=== PATIENT | male | born 1945 | race Caucasian/White ===

== ENCOUNTER 2021-09-15 14:10 | Inpatient (IN) ==
[2021-09-15] MEDS ORDERED: 0.9 % SODIUM CHLORIDE 1,000 ML IV ONE ×2 (14:18→15:56)
--- NOTE | 2021-09-15 14:37 | Emergency Department Note ---
HPI General Chief complaint: Blood Sugar Problem Stated complaint: hypotension, pale, high BS Time Seen by Provider: 09/15/21 14:23 Source: EMS Mode of arrival: EMS Limitations: no limitations History of Present Illness HPI Narrative: Narrative: 75 yo M w/ h/o HTN, HLD, DM2, p/w generalized weakness, dark stools, N/V/D and elevated blood sugar. He reports that for the past three days he has had an "upset stomach" progressing to N/V w/ undigested liquid present, and diarrhea. He reports that he has been taking pepto-bismol for his diarrhea and thus his stool has been black. He has had a colonoscopy about 9 years ago and this was unremarkable. He notes that he has become significantly weak over the past few days to the point that now standing up is causing him fatigue. He denies any F/C, CP/SOB, abdominal pain, or other Sx. Related Data Home Medications Medication Instructions Recorded Confirmed atorvastatin 40 mg tablet 40 mg PO QDAY 04/16/21 08/05/21 diazepam 5 mg tablet 5 mg PO QDAY PRN tab 04/16/21 08/05/21 ezetimibe 10 mg tablet 10 mg PO QDAY 04/16/21 08/05/21 lisinopril 20 mg tablet 20 mg PO QDAY 04/16/21 08/05/21 metformin 500 mg tablet 1,000 mg PO BID tab 04/16/21 08/05/21 metoprolol succinate 100 mg 100 mg PO QDAY 04/16/21 08/05/21 tablet,extended release 24 hr zolpidem 10 mg tablet 10 mg PO PRN tab 04/16/21 08/05/21 amlodipine 5 mg tablet 5 mg PO QDAY 04/30/21 08/05/21 buspirone 15 mg tablet 15 mg PO QDAY tab 04/30/21 08/05/21 nateglinide 60 mg tablet 60 mg PO BID tab 04/30/21 08/05/21 Allergies Allergy/AdvReac Type Severity Reaction Status Date / Time No Known Drug Allergies Allergy Verified 09/15/21 14:17 Review of Systems ROS ROS Narrative: Narrative: All systems ED: reviewed and negative except as stated. [facility] Narrative Patient History Narrative: Narrative: Medical/Surgical/Family History All Active Problems (Updated 09/15/21 @ 18:20 by Terence Reagan MD) Prolinuria (Chronic) DM (diabetes mellitus) (Chronic) HTN (hypertension) (Chronic) Hyperlipemia (Chronic) Insomnia (Chronic) Anxiety (Chronic) Overweight (Chronic) Proteinuria (Acute) Acute GI bleeding (Acute) DKA (diabetic ketoacidosis) (Acute) Medical History Anxiety DM (diabetes mellitus) Type 2 on oral rx HTN (hypertension) Hyperlipemia Insomnia Overweight Surgical History No pertinent past surgical history Family History Father No problems noted. Mother No problems noted. Social History Smoking Status: Former smoker Alcohol Intake Frequency: a few times a month Exam Narrative Narrative: Narrative: General Limitations: no limitations General appearance: Present alert and in no apparent distress Head Head: Present atraumatic and normocephalic ENT ENT: Present normal oropharynx and mucous membranes moist Chest Chest: Present normal inspection and symmetric chest wall rise Respiratory Respiratory: Present normal lung sounds bilaterally; Absent respiratory distress, accessory muscle use or decreased breath sounds Cardiovascular Cardiovascular: Present regular rate, normal rhythm, +S1, +S2 and other (2+ B/L radial pulses); Absent systolic murmur or diastolic murmur Adbominal Abdominal: Present soft and normal bowel sounds; Absent distention or tenderness Rectal Rectal: Present black stool (hemoccult positive but on pepto bismol) Extremities Extremities: Absent pedal edema Neurological Neurological: Present alert and oriented X3 Psychiatric Psychiatric: Present normal affect Skin Skin: Present warm (WNL) and dry Course Vital Signs Vital signs: Vital Signs Temperature 97.3 F 09/15/21 14:12 Pulse Rate 117 H 09/15/21 14:12 Respiratory Rate 18 09/15/21 14:12 Blood Pressure 91/41 09/15/21 14:12 Pulse Oximetry (%) 99 09/15/21 14:12 Temperature 97.3 F 09/15/21 14:12 Pulse Rate 121 H 09/15/21 17:34 Respiratory Rate 25 H 09/15/21 17:34 Blood Pressure 110/51 09/15/21 17:31 Pulse Oximetry (%) 92 04/25/22 17:34 MDM MDM Narrative Medical decision making narrative: Narrative: 75 yo M w/ h/o HTN, HLD, DM2, p/w generalized weakness, dark stools, N/V/D and elevated blood sugar. DDx- hemorrhagic shock, GI bleed, dehydration, metabolic/electrolyte d/o, endocrine d/o, ACS Pt presented w/ HR 120, SBP 100, pale, but mentating clearly, in NAD. He was i mmediately started on IVF. His rectal exam was notable for dark stool but the Dx was made somewhat unclear by his peptobismol use. Additionally, FS was around 450. I began a W/U for GI bleeding and DKA. His CBC showed a Hgb of 5.2. He was agreeable to transfusion and we started him on 2U PRBC and protonix after explaining R/B/A. CMP was notable for blood sugar of 587, K 6.1, anion gap 20, and ketones were positive. Lactate was 6.9. Given his positive shock index, elevated lactate there was clearly evidence of shock but he was compensating well w/ NAD, normal mentation. Concomitantly he had evidence of DKA, and I started him on standard DKA protocol. Given the tachycardia I did check an EKG w hich showed no ischemia. I consulted w/ BARNEY Richmond working w/ Dr Elliott w/ GI, and she stated that they would arrange for endoscopy in the AM. Dr Martins accepted pt for admission. Lab Data Lab results reviewed: Yes I reviewed the patient's lab results. Result diagrams: 09/15/21 14:40 09/15/21 15:35 Labs: Lab Results 09/15/21 09/15/21 09/15/21 Range/Units 14:33 14:40 15:35 WBC 12.7 H (4.5-11.0) K/mcL RBC 1.62 L (4.63-6.08) M/mcL Hgb 5.2 L* (13.7-17.5) g/dL Hct 16.5 L* (40.1-51.0) % MCV 101.9 H (80.0-100.0) fL MCH 32.1 (26.0-34.0) pg MCHC 31.5 (31.0-36.0) g/dL RDW 13.5 (11.5-14.5) % Plt Count 251 (140-440) K/mcL MPV 13.5 H (7.4-10.4) fL Neut % (Auto) 86.9 H (38.0-78.0) % Lymph % (Auto) 9.6 L (15.5-49.0) % [place] % (Auto) 3.2 (1.0-12.0) % Eos % (Auto) 0.1 (0.0-7.0) % Baso % (Auto) 0.2 (0.0-2.0) % Lymph # (Auto) 1.22 L (1.50-4.80) K/mcL [place] # (Auto) 0.40 (0.10-0.90) K/mcL Eos # (Auto) 0.01 (0.00-0.70) K/mcL Baso # (Auto) 0.02 (0.00-0.30) K/mcL Absolute Neutrophils 11.02 H (1.80-8.00) K/mcL POC VBG pH 7.33 (7.32-7.42) POC VBG pCO2 at Temp 28.9 L (41-51) POC VBG pO2 51 H (25-40) POC VBG HCO3 15.2 L (24-28) POC VBG Total CO2 16.0 L (25-29) POC Venous O2 Sat 84.0 H (40-70) POC VBG Base Excess -11.0 L (-2-2) VBG Lactic Acid 6.9 H* (0.5-2.0) mmol/L Sodium 137 (133-145) mmol/L Potassium 6.1 H* (3.3-5.1) mmol/L Chloride 102 (96-108) mmol/L Carbon Dioxide 15 L (22-30) mmol/L Anion Gap 20.0 H (8.0-16.0) BUN 55 H (8-23) mg/dL Creatinine 1.1 (0.7-1.2) mg/dL GFR Calculation 65 Glucose 587 H* (70-105) mg/dL POC Venous Lactate 9.6 H* (0.5-2) Calcium 9.8 (8.6-10.4) mg/dL Total Bilirubin 0.2 (0.1-1.0) mg/dL AST 9 (<40) U/L ALT 11 (<40) U/L Alkaline Phosphatase 52 (39-117) U/L Total Protein 5.1 L (5.9-8.4) gm/dL Albumin 3.2 (3.2-5.2) gm/dL Globulin 1.9 L (2.2-3.7) gm/dL Albumin/Globulin Ratio 1.7 (1.0-2.3) Beta-Hydroxybutyrate 0.82 H (<0.27) mmol/L CC TIME Critical Care Time Attestation: Approximately 35 minutes of critical care time was used in order to assess and manage the high probability of imminent or life threatening deterioration to the cardiovascular, GI and endocrine systems which required my highest level of preparedness and interventions with frequent patient assessments. This time is excluding time spent on separately billable procedures. Discharge Plan Patient/Caregiver Discharge Instructions Pt seen by MANUFACTURING PROJECT MANAGER/PA only: No Clinical Impression: Acute GI bleeding, DKA (diabetic ketoacidosis) Patient Disposition: Xfer As Inpt ([facility]) Condition: Critical Follow up with: Riri Edwards MD [Primary Care Provider] - Prescriptions: No Action ezetimibe 10 mg tablet 10 mg PO QDAY 0RF diazepam 5 mg tablet 5 mg PO QDAY PRN0RF zolpidem 10 mg tablet 10 mg PO PRN0RF metoprolol succinate 100 mg tablet extended release 24 hr 100 mg PO QDAY 0RF metformin 500 mg tablet 1,000 mg PO BID 0RF lisinopril 20 mg tablet 20 mg PO QDAY 0RF atorvastatin 40 mg tablet 40 mg PO QDAY 0RF buspirone 15 mg tablet 15 mg PO QDAY 0RF Label Comments: Dr Edwards manages amlodipine 5 mg tablet 5 mg PO QDAY 0RF nateglinide 60 mg tablet 60 mg PO BID 0RF Rx Instructions: give before meal(s)
[2021-09-15 16:25] LABS: Basophils # (Auto) 0.02 K/mcL (0.00-0.30); Basophils % (Auto) 0.2 % (0.0-2.0); Eosinophils # (Auto) 0.01 K/mcL (0.00-0.70); Eosinophils % (Auto) 0.1 % (0.0-7.0); Hematocrit 16.5 % (40.1-51.0); Hemoglobin 5.2 g/dL (13.7-17.5); Lymphocytes # (Auto) 1.22 K/mcL (1.50-4.80); Lymphocytes % (Auto) 9.6 % (15.5-49.0); Mean Cell Volume 101.9 fL (80.0-100.0); Mean Corpuscular HGB Conc 31.5 g/dL (31.0-36.0); Mean Platelet Volume 13.5 fL (7.4-10.4); Monocytes % (Auto) 3.2 % (1.0-12.0); Neutrophils % (Auto) 86.9 % (38.0-78.0); Platelet Count 251 K/mcL (140-440); RBC 1.62 M/mcL (4.63-6.08); Red Cell Distribution Width 13.5 % (11.5-14.5); WBC 12.7 K/mcL (4.5-11.0)
[2021-09-15] MEDS ORDERED: PANTOPRAZOLE 40 MG VIAL IV ONE (16:41)
[2021-09-15] MEDS ORDERED: 0.9 % SODIUM CHLORIDE 250 ML IV SCH ×2 (16:45→20:55)
[2021-09-15 17:03] LABS: Beta Hydroxybutyrate 0.82 mmol/L (<0.27)
[2021-09-15 17:09] LABS: ALT/SGPT 11 U/L (<40); AST/SGOT 9 U/L (<40); Albumin 3.2 gm/dL (3.2-5.2); Albumin/Globulin Ratio 1.7 (1.0-2.3); Alkaline Phosphatase 52 U/L (39-117); Bilirubin,Total 0.2 mg/dL (0.1-1.0); Blood Urea Nitrogen 55 mg/dL (8-23); Calcium 9.8 mg/dL (8.6-10.4); Carbon Dioxide 15 mmol/L (22-30); Chloride 102 mmol/L (96-108); Globulin 1.9 gm/dL (2.2-3.7); Glomerular Filtration Rate 65; Glucose 587 mg/dL (70-105)
[2021-09-15] MEDS ORDERED: INSULIN REGULAR, HUMAN 50 UNIT in 0.9 % SODIUM CHLORIDE 99.5 ML IV SCH ×2 (17:45→20:55)
[2021-09-15] MEDS ORDERED: KETAMINE 50 MG/ML ML IV PRN (18:16)
[2021-09-15 18:23] LABS: ABG Methemoglobin 0.3 % (0.4-1.5); Total Hemoglobin 5.8 gm/Dl (13.5-16.5); VBG Base Excess -5 (-2-3); VBG HCO3 19.4 mmol/L (24.0-28.0); VBG Oxygen Saturation 86.2 % (40.0-70.0); VBG PCO2 33.7 mmHg (41.0-51.0); VBG PH 7.38 U (7.32-7.42); VBG PO2 128.1 mmHg (25.0-40.0); VBG Total CO2 20.5 mmol/L (25.0-29.0)
[2021-09-15] MEDS ORDERED: MIDAZOLAM 2 MG/2 ML VIAL IV SCH (18:30)
[2021-09-15] MEDS ORDERED: PROPOFOL 200 MG/20 ML VIAL IV SCH (18:30)
--- NOTE | 2021-09-15 18:35 | Internal Medicine Consult Note ---
HPI Data of Consult Patient: new to practice Consult date: 09/15/21 Requesting physician: Terence Reagan Primary Care Provider: Riri Edwards Consult Narrative Patient Information: Note initiated : 09/15/21 at 6:25 pm Service Date, if different from initiated Date: [] Patient: Christian Botello 75 y/o M admitted on for hypotension, pale, high BS. Chief Complaint: [melena, anemia] Mr Botello is a 75 year old white diabetic w/ HTN and hyperlipidemia who was brought to the ED by his daughter (present during interview) for c/o of weakness, chest pain, melena and a hgb 5. A week ago, he developed acute onset vomiting and diarrhea with crampy generalized abdominal pain. He began to take Aleve and peptobismol for his complaints and noticed melena the morning of 09/13. He also takes a cardioprophylactic 81mg ASA. He has had at least 2 black BMs daily for the last 3 days. His daughter became concerned when he couldn't stand up without becoming lightheaded and began to complain of dyspnea and chest pain on exertion. He denies any heartburn, dyspepsia, dysphagia or hematemesis. Last colonoscopy approximately [address] Hussein. There is no previous EGD. Chief complaint: GI bleed Reason for consult: GI bleed cc:: CC: Review of Systems All systems: reviewed and no additional remarkable complaints except as stated PFSH PFSH All Active Problems (Updated 09/15/21 @ 18:20 by Terence Reagan MD) Prolinuria (Chronic) DM (diabetes mellitus) (Chronic) HTN (hypertension) (Chronic) Hyperlipemia (Chronic) Insomnia (Chronic) Anxiety (Chronic) Overweight (Chronic) Proteinuria (Acute) Acute GI bleeding (Acute) DKA (diabetic ketoacidosis) (Acute) Medical History Anxiety DM (diabetes mellitus) Type 2 on oral rx HTN (hypertension) Hyperlipemia Insomnia Overweight Surgical History No pertinent past surgical history Family History Father No problems noted. Mother No problems noted. Social History (Updated 04/16/21 @ 14:21 by Randa Galvez) smoking status: Never smoker alcohol intake frequency: a few times a month MEDS/ALLERGIES Home Medications and Allergies Home Medications Medication Instructions Recorded Confirmed Type atorvastatin 40 mg tablet 40 mg PO QDAY 04/16/21 08/05/21 History diazepam 5 mg tablet 5 mg PO QDAY PRN tab 04/16/21 08/05/21 History ezetimibe 10 mg tablet 10 mg PO QDAY 04/16/21 08/05/21 History lisinopril 20 mg tablet 20 mg PO QDAY 04/16/21 08/05/21 History metformin 500 mg tablet 1,000 mg PO BID tab 04/16/21 08/05/21 History metoprolol succinate 100 mg 100 mg PO QDAY 04/16/21 08/05/21 History tablet,extended release 24 hr zolpidem 10 mg tablet 10 mg PO PRN tab 04/16/21 08/05/21 History amlodipine 5 mg tablet 5 mg PO QDAY 04/30/21 08/05/21 History buspirone 15 mg tablet 15 mg PO QDAY tab 04/30/21 08/05/21 History nateglinide 60 mg tablet 60 mg PO BID tab 04/30/21 08/05/21 History Allergies Allergy/AdvReac Type Severity Reaction Status Date / Time No Known Drug Allergies Allergy Verified 09/15/21 14:17 EXAM Constitutional Vitals: Temp Pulse Resp BP Pulse Ox 97.3 F 125 H 28 H 111/55 100 09/15/21 14:12 09/15/21 18:10 09/15/21 18:10 09/15/21 18:02 09/15/21 18:10 General appearance: average body habitus, cooperative and no acute distress Head Head exam: Present atraumatic, normal inspection and normocephalic ENT ENT exam: Present mucous membranes dry Neck Neck exam: Present normal inspection Cardiovascular Cardiovascular exam: Present tachycardia Rectal Rectal exam: Present deferred Expanded Lower Extremity Exam Gait: Present not tested/not observed Psychiatric Psychiatric exam: Present normal affect and normal mood Skin Skin exam: Present dry and pallor DATA Data Completed and Pending Labs: Labs from last 24 hours 09/15/21 09/15/21 09/15/21 18:02 18:01 17:45 WBC RBC Hgb Hct MCV MCH MCHC RDW Plt Count MPV Neut % (Auto) Lymph % (Auto) [place] % (Auto) Eos % (Auto) Baso % (Auto) Lymph # (Auto) [place] # (Auto) Eos # (Auto) Baso # (Auto) Absolute Neutrophils ABG Methemoglobin 0.3 L VBG pH 7.38 POC VBG pH VBG pCO2 33.7 L POC VBG pCO2 at Temp VBG pO2 128.1 H POC VBG pO2 VBG HCO3 19.4 L POC VBG HCO3 VBG Total CO2 20.5 L POC VBG Total CO2 VBG O2 Saturation 86.2 H POC Venous O2 Sat VBG Base Excess -5 L POC VBG Base Excess VBG Lactic Acid Carboxyhemoglobin 11.2 H Total Hemoglobin 5.8 L* Sodium Pending Potassium Pending Chloride Pending Carbon Dioxide Pending Anion Gap Pending BUN Pending Creatinine Pending GFR Calculation Pending Glucose Pending POC Venous Lactate Uric Acid Pending Calcium Pending Phosphorus Pending Magnesium Pending Pending Total Bilirubin Pending Direct Bilirubin Pending GGT Pending AST Pending ALT Pending Alkaline Phosphatase Pending Lactate Dehydrogenase Pending Total Protein Pending Albumin Pending Globulin Pending Albumin/Globulin Ratio Pending Triglycerides Pending Beta-Hydroxybutyrate 09/15/21 09/15/21 09/15/21 15:35 14:40 14:33 WBC 12.7 H RBC 1.62 L Hgb 5.2 L* Hct 16.5 L* MCV 101.9 H MCH 32.1 MCHC 31.5 RDW 13.5 Plt Count 251 MPV 13.5 H Neut % (Auto) 86.9 H Lymph % (Auto) 9.6 L [place] % (Auto) 3.2 Eos % (Auto) 0.1 Baso % (Auto) 0.2 Lymph # (Auto) 1.22 L [place] # (Auto) 0.40 Eos # (Auto) 0.01 Baso # (Auto) 0.02 Absolute Neutrophils 11.02 H ABG Methemoglobin VBG pH POC VBG pH 7.33 VBG pCO2 POC VBG pCO2 at Temp 28.9 L VBG pO2 POC VBG pO2 51 H VBG HCO3 POC VBG HCO3 15.2 L VBG Total CO2 POC VBG Total CO2 16.0 L VBG O2 Saturation POC Venous O2 Sat 84.0 H VBG Base Excess POC VBG Base Excess -11.0 L VBG Lactic Acid 6.9 H* Carboxyhemoglobin Total Hemoglobin Sodium 137 Potassium 6.1 H* Chloride 102 Carbon Dioxide 15 L Anion Gap 20.0 H BUN 55 H Creatinine 1.1 GFR Calculation 65 Glucose 587 H* POC Venous Lactate 9.6 H* Uric Acid Calcium 9.8 Phosphorus Magnesium Total Bilirubin 0.2 Direct Bilirubin GGT AST 9 ALT 11 Alkaline Phosphatase 52 Lactate Dehydrogenase Total Protein 5.1 L Albumin 3.2 Globulin 1.9 L Albumin/Globulin Ratio 1.7 Triglycerides Beta-Hydroxybutyrate 0.82 H A/P Assessment and plan (1) Acute GI bleeding: Assessment and plan: Melena, anemia and elevated BUN strongly suggest an UGI bleed, likely related to aspirin and NSAID use. I reviewed his case with Dr. Guan. We will arrange for EGD in the morning and start pantoprazole IV drip tonight. He is receiving a blood transfusion at the moment. Will allow patient to have ice chips until 2 hours prior to EGD. If no cause of bleeding identified, will consider colonoscopy and wireless capsule enteroscopy. Status: Acute Time Spent With Patient Time: Total time spent is greater than 50% in coordination of care (as documented) at patient's floor/unit and/or counseling patient: Total time spent with greater than 50% in coordination of care (as documented) at patient's floor/unit and/or counseling patient:: 25 - 35 minutes
[2021-09-15 19:16] LABS: Partial Thromboplastin Time 21.9 sec (20.0-37.0)
[2021-09-15 19:17] LABS: INR 1.2 (0.9-1.1); Prothrombin Time 15.5 sec (11.9-14.5)
--- NOTE | 2021-09-15 19:26 | Internal Med History&Physical ---
HPI History of Present Illness Patient information: Note initiated : 09/15/21 at 7:20 pm Service Date, if different from initiated Date: [] Patient: Christian Botello 75 y/o M admitted on for hypotension, pale, high BS. Chief Complaint: [] History of present illness: Mr. Botello is a 75 year old male with a history of hypertension, hyperlipidemia, type 2 diabetes mellitus, anxiety, obesity who presents to the emergency department for generalized weakness and shortness of breath. The patient says he is also been experiencing epigastric pain for about 5 days. In the ED, the patient was found to have severe anemia and guaiac positive melanotic stool. Additionally, lactic acid was elevated and blood pressures were low on presentation. The patient was given IV fluids, blood transfusions, Protonix IV. Patient was also hyperglycemic in the emergency department, started on a insulin infusion. Patient does have an anion gap metabolic acidosis likely secondary to lactic acidosis. Venous pH was normal at 7.38. Hospital medicine was consulted for admission. We discussed the plan of care in detail as well as the goals of care and CODE STATUS. All questions answered to the best of my ability. The patient stated that he wishes to be DNR/DNI. Review of systems Constitutional: Positive for generalized weakness, no fever or chills Eyes: no vision changes or pain Cardiovascular: no chest pain, no palpitations Respiratory: Positive for dyspnea, no cough Gastrointestinal: Positive for epigastric abdominal pain and dark stools, no nausea, vomiting, or diarrhea Genitourinary: no dysuria or difficulty voiding Musculoskeletal: no arthralgia or myalgia Integumentary: no skin lesion or wound Neurological: no focal weakness or numbness Psychiatric: no anxiety or depression Physical exam Head: Atraumatic, normal inspection. Eyes: normal appearance, no scleral icterus. Neck: full ROM Respiratory: no respiratory distress. Cardiovascular: Regular tachycardia, S1, S2. GI/Abdominal: soft, nontender, no guarding. Extremities: full range of motion, nontender. Neurological: CN II-XII intact, intact motor, intact sensation. Psychiatric: normal mood. Skin: warm, normal color PFSH PFSH All Active Problems (Updated 09/15/21 @ 18:20 by Terence Reagan MD) Prolinuria (Chronic) DM (diabetes mellitus) (Chronic) HTN (hypertension) (Chronic) Hyperlipemia (Chronic) Insomnia (Chronic) Anxiety (Chronic) Overweight (Chronic) Proteinuria (Acute) Acute GI bleeding (Acute) DKA (diabetic ketoacidosis) (Acute) Medical History Anxiety DM (diabetes mellitus) Type 2 on oral rx HTN (hypertension) Hyperlipemia Insomnia Overweight Surgical History No pertinent past surgical history Family History Father No problems noted. Mother No problems noted. Social History (Updated 04/16/21 @ 14:21 by Randa Galvez) smoking status: Never smoker alcohol intake frequency: a few times a month MEDS/ALLERGIES Home Medications and Allergies Home Medications Medication Instructions Recorded Confirmed Type atorvastatin 40 mg tablet 40 mg PO QDAY 04/16/21 08/05/21 History diazepam 5 mg tablet 5 mg PO QDAY PRN tab 04/16/21 08/05/21 History ezetimibe 10 mg tablet 10 mg PO QDAY 04/16/21 08/05/21 History lisinopril 20 mg tablet 20 mg PO QDAY 04/16/21 08/05/21 History metformin 500 mg tablet 1,000 mg PO BID tab 04/16/21 08/05/21 History metoprolol succinate 100 mg 100 mg PO QDAY 04/16/21 08/05/21 History tablet,extended release 24 hr zolpidem 10 mg tablet 10 mg PO PRN tab 04/16/21 08/05/21 History amlodipine 5 mg tablet 5 mg PO QDAY 04/30/21 08/05/21 History buspirone 15 mg tablet 15 mg PO QDAY tab 04/30/21 08/05/21 History nateglinide 60 mg tablet 60 mg PO BID tab 04/30/21 08/05/21 History Allergies Allergy/AdvReac Type Severity Reaction Status Date / Time No Known Drug Allergies Allergy Verified 09/15/21 14:17 EXAM Constitutional Vitals: Temp Pulse Resp BP Pulse Ox 97.3 F 135 H 20 127/72 100 09/15/21 14:12 09/15/21 19:04 09/15/21 19:04 09/15/21 19:03 09/15/21 19:04 DATA Data Completed and Pending Labs: Labs from last 24 hours 09/15/21 09/15/21 09/15/21 18:20 18:02 18:01 WBC RBC Hgb Hct MCV MCH MCHC RDW Plt Count MPV Neut % (Auto) Lymph % (Auto) [place] % (Auto) Eos % (Auto) Baso % (Auto) Lymph # (Auto) [place] # (Auto) Eos # (Auto) Baso # (Auto) Absolute Neutrophils PT 15.5 H INR 1.2 H APTT 21.9 ABG Methemoglobin VBG pH POC VBG pH VBG pCO2 POC VBG pCO2 at Temp VBG pO2 POC VBG pO2 VBG HCO3 POC VBG HCO3 VBG Total CO2 POC VBG Total CO2 VBG O2 Saturation POC Venous O2 Sat VBG Base Excess POC VBG Base Excess VBG Lactic Acid Carboxyhemoglobin Total Hemoglobin Sodium Pending Potassium Pending Chloride Pending Carbon Dioxide Pending Anion Gap Pending BUN Pending Creatinine Pending GFR Calculation Pending Glucose Pending POC Venous Lactate Uric Acid Pending Calcium Pending Phosphorus Pending Magnesium Pending Pending Total Bilirubin Pending Direct Bilirubin Pending GGT Pending AST Pending ALT Pending Alkaline Phosphatase Pending Lactate Dehydrogenase Pending Total Protein Pending Albumin Pending Globulin Pending Albumin/Globulin Ratio Pending Triglycerides Pending Beta-Hydroxybutyrate 09/15/21 09/15/21 09/15/21 17:45 15:35 14:40 WBC 12.7 H RBC 1.62 L Hgb 5.2 L* Hct 16.5 L* MCV 101.9 H MCH 32.1 MCHC 31.5 RDW 13.5 Plt Count 251 MPV 13.5 H Neut % (Auto) 86.9 H Lymph % (Auto) 9.6 L [place] % (Auto) 3.2 Eos % (Auto) 0.1 Baso % (Auto) 0.2 Lymph # (Auto) 1.22 L [place] # (Auto) 0.40 Eos # (Auto) 0.01 Baso # (Auto) 0.02 Absolute Neutrophils 11.02 H PT INR APTT ABG Methemoglobin 0.3 L VBG pH 7.38 POC VBG pH VBG pCO2 33.7 L POC VBG pCO2 at Temp VBG pO2 128.1 H POC VBG pO2 VBG HCO3 19.4 L POC VBG HCO3 VBG Total CO2 20.5 L POC VBG Total CO2 VBG O2 Saturation 86.2 H POC Venous O2 Sat VBG Base Excess -5 L POC VBG Base Excess VBG Lactic Acid 6.9 H* Carboxyhemoglobin 11.2 H Total Hemoglobin 5.8 L* Sodium 137 Potassium 6.1 H* Chloride 102 Carbon Dioxide 15 L Anion Gap 20.0 H BUN 55 H Creatinine 1.1 GFR Calculation 65 Glucose 587 H* POC Venous Lactate Uric Acid Calcium 9.8 Phosphorus Magnesium Total Bilirubin 0.2 Direct Bilirubin GGT AST 9 ALT 11 Alkaline Phosphatase 52 Lactate Dehydrogenase Total Protein 5.1 L Albumin 3.2 Globulin 1.9 L Albumin/Globulin Ratio 1.7 Triglycerides Beta-Hydroxybutyrate 0.82 H 09/15/21 14:33 WBC RBC Hgb Hct MCV MCH MCHC RDW Plt Count MPV Neut % (Auto) Lymph % (Auto) [place] % (Auto) Eos % (Auto) Baso % (Auto) Lymph # (Auto) [place] # (Auto) Eos # (Auto) Baso # (Auto) Absolute Neutrophils PT INR APTT ABG Methemoglobin VBG pH POC VBG pH 7.33 VBG pCO2 POC VBG pCO2 at Temp 28.9 L VBG pO2 POC VBG pO2 51 H VBG HCO3 POC VBG HCO3 15.2 L VBG Total CO2 POC VBG Total CO2 16.0 L VBG O2 Saturation POC Venous O2 Sat 84.0 H VBG Base Excess POC VBG Base Excess -11.0 L VBG Lactic Acid Carboxyhemoglobin Total Hemoglobin Sodium Potassium Chloride Carbon Dioxide Anion Gap BUN Creatinine GFR Calculation Glucose POC Venous Lactate 9.6 H* Uric Acid Calcium Phosphorus Magnesium Total Bilirubin Direct Bilirubin GGT AST ALT Alkaline Phosphatase Lactate Dehydrogenase Total Protein Albumin Globulin Albumin/Globulin Ratio Triglycerides Beta-Hydroxybutyrate A/P Narrative A/P Narrative: Assessment: 75 year old male with a history of hypertension, hyperlipidemia, type 2 diabetes mellitus, anxiety, obesity admitted for hemorrhagic shock likely secondary to an upper gastrointestinal bleed. The patient says he takes aspirin 81 mg daily, no other NSAIDs on a regular basis. Additionally, the patient was markedly hyperglycemic likely secondary to stress induced hyperglycemia. pH was normal therefore patient is unlikely to be in DKA. #Hemorrhagic shock #Probable upper GI bleed #Rule out retroperitoneal bleed #Hyperglycemia versus less likely DKA #Hyperkalemia #Anion gap metabolic acidosis secondary to lactic acidosis #Essential hypertension #Hyperlipidemia #Anxiety disorder #Obesity BMI 35 Plan -Blood transfusions x3 now, trend hemoglobin transfuse for hemoglobin less than 7 or symptomatic anemia. -Check INR/PT and PTT. -H. pylori stool antigen. -Trend lactic acid until downtrending. -Trend potassium until normal. -Protonix infusion. -Insulin infusion until shock and hyperglycemia have resolved then transition to SQ insulin regimen. -IV fluid, monitor volume status. -Levophed as needed to keep MAP greater than 65. -Check iron studies. -CT abdomen pelvis without contrast to rule out large retroperitoneal bleed. -GI consult. -monitor worker. -Clear liquid diet now followed byn.p.o. except ice chips after midnight. -DVT prophylaxis: SCDs -CODE STATUS: DNR/DNI Time Spent With Patient Time: Total time spent is greater than 50% in coordination of care (as documented) at patient's floor/unit and/or counseling patient:
[2021-09-15 19:27] LABS: Carbon Dioxide 17 mmol/L (22-30); Chloride 104 mmol/L (96-108)
[2021-09-15 19:34] LABS: ALT/SGPT 11 U/L (<40); AST/SGOT 9 U/L (<40); Albumin 3.2 gm/dL (3.2-5.2); Alkaline Phosphatase 52 U/L (39-117); Bilirubin,Direct < 0.2 mg/dL (0-0.3); Bilirubin,Total 0.2 mg/dL (0.1-1.0); Blood Urea Nitrogen 55 mg/dL (8-23); Calcium 9.5 mg/dL (8.6-10.4); Globulin 1.6 gm/dL (2.2-3.7); Glomerular Filtration Rate 73; Glucose 489 mg/dL (70-105); Lactate Dehydrogenase 119 U/L (135-225); Phosphorous 3.4 mg/dL (2.5-4.5); Triglycerides 139 mg/dL (<150); Uric Acid 6.4 mg/dL (2.5-8.0)
[2021-09-15] MEDS ORDERED: NOREPINEPHRINE BITARTRATE 8 MG in 0.9 % SODIUM CHLORIDE 242 ML IV SCH (20:55)
[2021-09-15] MEDS ORDERED: PANTOPRAZOLE 80 MG in 0.9 % SODIUM CHLORIDE 100 ML IV SCH (20:55)
[2021-09-15] MEDS: PANTOPRAZOLE 80 MG in 0.9 % SODIUM CHLORIDE 100 ML IV SCH (21:55)
[2021-09-15 22:09] LABS: ABG Methemoglobin 0.5 % (0.4-1.5); Total Hemoglobin 7.7 gm/Dl (13.5-16.5); VBG Base Excess -6 (-2-3); VBG HCO3 20.1 mmol/L (24.0-28.0); VBG Oxygen Saturation 83.1 % (40.0-70.0); VBG PCO2 40.3 mmHg (41.0-51.0); VBG PH 7.32 U (7.32-7.42); VBG PO2 64.9 mmHg (25.0-40.0); VBG Total CO2 21.3 mmol/L (25.0-29.0)
[2021-09-15] MEDS: 0.9 % SODIUM CHLORIDE 10 ML SYRINGE IV SCH (22:22)
[2021-09-15] MEDS ORDERED: NOREPINEPHRINE BITARTRATE 8 MG in 0.9 % SODIUM CHLORIDE 242 ML IV PRN (23:00)
[2021-09-15] MEDS: 0.9 % SODIUM CHLORIDE 250 ML IV SCH (23:08)
[2021-09-15] MEDS ORDERED: INSULIN REGULAR, HUMAN 1 UNIT/0.01 ML UNIT ONE (23:19)
[2021-09-16 00:22] LABS: Iron 51 ug/dL (61-157); TIBC Calculation 294 ug/dl (228-428); Transferrin % Saturation 17 % (20-50)
[2021-09-16 00:25] LABS: ABG Methemoglobin 0 % (0.4-1.5); VBG Base Excess -5 (-2-3); VBG HCO3 19.8 mmol/L (24.0-28.0); VBG Oxygen Saturation 86.3 % (40.0-70.0); VBG PCO2 33.9 mmHg (41.0-51.0); VBG PH 7.38 U (7.32-7.42); VBG PO2 88.4 mmHg (25.0-40.0); VBG Total CO2 20.8 mmol/L (25.0-29.0)
[2021-09-16 00:43] LABS: Carbon Dioxide 21 mmol/L (22-30); Chloride 105 mmol/L (96-108)
[2021-09-16] MEDS ORDERED: PANTOPRAZOLE 40 MG VIAL IV ONE (01:27)
[2021-09-16] MEDS: LACTATED RINGERS 1,000 ML IV SCH ×3 (01:51→15:42)
[2021-09-16 05:01] LABS: ABG Methemoglobin 0.4 % (0.4-1.5); Total Hemoglobin 8.4 gm/Dl (13.5-16.5); VBG Base Excess -1 (-2-3); VBG HCO3 22.6 mmol/L (24.0-28.0); VBG Oxygen Saturation 86.7 % (40.0-70.0); VBG PCO2 32.9 mmHg (41.0-51.0); VBG PH 7.45 U (7.32-7.42); VBG PO2 92.1 mmHg (25.0-40.0); VBG Total CO2 23.6 mmol/L (25.0-29.0)
[2021-09-16 05:29] LABS: ALT/SGPT 9 U/L (<40); AST/SGOT 11 U/L (<40); Albumin 2.8 gm/dL (3.2-5.2); Albumin/Globulin Ratio 1.6 (1.0-2.3); Alkaline Phosphatase 45 U/L (39-117); Bilirubin,Direct < 0.2 mg/dL (0-0.3); Bilirubin,Total 0.5 mg/dL (0.1-1.0); Blood Urea Nitrogen 38 mg/dL (8-23); Calcium 8.9 mg/dL (8.6-10.4); Carbon Dioxide 21 mmol/L (22-30); Chloride 105 mmol/L (96-108); Globulin 1.8 gm/dL (2.2-3.7); Glomerular Filtration Rate 83; Glucose 94 mg/dL (70-105); Lactate Dehydrogenase 227 U/L (135-225); Phosphorous 2.6 mg/dL (2.5-4.5); Triglycerides 104 mg/dL (<150); Uric Acid 6.4 mg/dL (2.5-8.0)
[2021-09-16] MEDS ORDERED: DEXTROSE 50% 50 ML VIAL IV PRN (05:41)
[2021-09-16] MEDS ORDERED: DEXTROSE 31 GM ORAL.SUSP PO PRN (05:41)
[2021-09-16] MEDS ORDERED: 0.9 % SODIUM CHLORIDE 250 ML IV SCH (05:45)
[2021-09-16] MEDS: INSULIN LISPRO 1 UNIT/0.01 ML UNIT SQ SCH ×3 (05:54→17:35)
[2021-09-16] MEDS ORDERED: DEXTROSE 50% 50 ML SYRINGE IV PRN (06:00)
[2021-09-16 06:08] LABS: Estimated Average Glucose(eAG) 128 mg/dL; Hemoglobin A1C 6.1 % Hgb (4.0-6.0)
[2021-09-16] MEDS: 0.9 % SODIUM CHLORIDE 10 ML SYRINGE IV SCH ×3 (07:40→21:43)
--- NOTE | 2021-09-16 07:56 | EKG ---
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
[2021-09-16 07:57] LABS: ABG Methemoglobin 0.3 % (0.4-1.5); Total Hemoglobin 8.1 gm/Dl (13.5-16.5); VBG Base Excess -1 (-2-3); VBG HCO3 22.6 mmol/L (24.0-28.0); VBG Oxygen Saturation 88.1 % (40.0-70.0); VBG PCO2 31.8 mmHg (41.0-51.0); VBG PH 7.47 U (7.32-7.42); VBG PO2 124.7 mmHg (25.0-40.0); VBG Total CO2 23.5 mmol/L (25.0-29.0)
[2021-09-16 08:17] LABS: Carbon Dioxide 20 mmol/L (22-30); Chloride 103 mmol/L (96-108)
[2021-09-16] MEDS ORDERED: KETAMINE 50 MG/ML ML IV PRN (08:43)
[2021-09-16] MEDS ORDERED: PROPOFOL 200 MG/20 ML VIAL IV SCH (08:45)
[2021-09-16] MEDS ORDERED: MIDAZOLAM 2 MG/2 ML VIAL IV SCH (08:45)
--- NOTE | 2021-09-16 09:14 | Cat Scan Report ---
History: Hypertension, hyperglycemia, evaluate for retroperitoneal hemorrhage TECHNIQUE: The patient was imaged without contrast scanning from the diaphragm through the symphysis pubis. Sagittal and coronal reformats were created. The radiation exposure was limited using dose reduction technology. FINDINGS: There is minor parenchymal scarring in the right lung base. Pericardial thickening is present. There is a moderate amount calcified plaque in the left anterior descending coronary artery. Evaluation of the abdominal organs without contrast is somewhat limited. Centrally in segment eight of the right lobe of liver there is a well-circumscribed 2.5 x 3.5 cm cyst. There may be another 8 mm cyst in segment 4A of the left lobe. The gallbladder and bile ducts appear normal. Spleen is normal in size and homogeneous. No abnormality is seen within the pancreas. The adrenals are normal and symmetric. The kidneys are normal in size and shape. In the lower pole of the right kidney a 1.3 cm low-attenuation structure is present. This is probably a cyst. A more ill-defined low-attenuation structure measuring 1.1 x 1.3 cm is located medially in the upper pole of the left kidney. This is difficult to characterize but more likely a cyst than a solid lesion. There is no kidney stone or hydronephrosis on either side. Scattered plaques are present along the wall of normal caliber abdominal aorta and iliac arteries. 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 No retroperitoneal hemorrhage is present. There is also no adenopathy or ascites in the abdomen or pelvis. Stomach contains a moderate amount of fluid. Small intestine is normal in caliber and noninflamed. There is fecal impaction in the rectum. Proximal to this the large intestine appears normal. Appendix is noninflamed. Prostate is mildly enlarged but homogeneous. Urinary bladder is partially distended. 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 There is partial ankylosis across the right SI joint. 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
--- NOTE | 2021-09-16 11:23 | Internal Med Progress Note ---
SUBJECTIVE Subjective Patient information: Note initiated : 09/16/21 at 11:18 am Service Date, if different from initiated Date: [] Patient: Christian Botello 75 y/o M admitted on 09/15/21 for hypotension, pale, high BS. Chief Complaint: [] Interval history: Mr. Botello is a 75 year old male with a history of hypertension, hyperlipidemia, type 2 diabetes mellitus, anxiety, obesity who presents to the emergency department for generalized weakness and shortness of breath. The patient says he is also been experiencing epigastric pain for about 5 days. In the ED, the patient was found to have severe anemia and guaiac positive melanotic stool. A dditionally, lactic acid was elevated and blood pressures were low on presentation. The patient was given IV fluids, blood transfusions, Protonix IV. Patient was also hyperglycemic in the emergency department, started on a insulin infusion. Patient does have an anion gap metabolic acidosis likely secondary to lactic acidosis. Venous pH was normal at 7.38. Hospital medicine was consulted for admission. We discussed the plan of care in detail as well as the goals of care and CODE STATUS. All questions answered to the best of my ability. The patient stated that he wishes to be DNR/DNI. 09/16 Patient has received 4 units of red blood cells since admission, vitals much more stable than upon admission, lactic acid downtrending. CT abdomen and pelvis Did not show any evidence of hemorrhage within the abdomen or pelvis. Hyperglycemia resolved, transition to subcutaneous correction insulin SSI. The plan is for EGD today. Physical exam Head: Atraumatic, normal inspection. Eyes: normal appearance, no scleral icterus. Neck: full ROM Respiratory: no respiratory distress. Cardiovascular: Regular tachycardia, S1, S2. GI/Abdominal: soft, nontender, no guarding. Extremities: full range of motion, nontender. Neurological: CN II-XII intact, intact motor, intact sensation. Psychiatric: normal mood. Skin: warm, normal color Constitutional Vitals: Vital Signs Temp Pulse Resp BP Pulse Ox 98.7 F 111 H 18 135/61 98 09/16/21 10:13 09/16/21 02:00 09/16/21 02:00 09/16/21 11:01 09/16/21 11:01 Period Temp Pulse Resp BP Sys/Yepez Pulse Ox Last 24 Hr 97.3 F-99.1 F 111-137 14-41 62-153/32-127 90-100 Intake and Output 09/15/21 09/16/21 09/16/21 21:59 05:59 13:59 Intake Total 5250 443 7769 Output Total 750 700 Balance 1893 52 875 Weight 120.202 kg Intake & Output: Intake & Output 09/15/21 09/16/21 09/16/21 21:59 05:59 13:59 Intake Total 5929 280 1335 Output Total 750 700 Balance 1893 52 875 Weight 120.202 kg Intake: IV 7078 486 9711 Sodium Chloride 0.9% 1,000 ml @ 1000 1000 Wide Open IV [facility] Rx#: [id number] Sodium Chloride 0.9% 250 ml @ 250 20 mls/hr IV .[id number] [facility] Rx#: [id number] HumuLIN R 50 UNIT In Sodium 23 177 Chloride 0.9% 99.5 ml @ Per Protocol IV DUR [facility] Rx#: [id number] Oral 220 300 Blood Product 650 325 325 Output: Void Amount 750 700 Other: Urine Appearance Clear Urine Color Pale OBJ DATA Labs CBC & Chem 7: 09/16/21 04:38 09/16/21 07:33 Labs: Abnormal Lab Results 09/16/21 09/16/21 09/16/21 07:33 07:33 04:38 WBC RBC Hgb Hct MCV MPV Neut % (Auto) Lymph % (Auto) Lymph # (Auto) Absolute Neutrophils PT INR ABG Methemoglobin 0.3 L VBG pH 7.47 H VBG pCO2 31.8 L POC VBG pCO2 at Temp VBG pO2 124.7 H POC VBG pO2 VBG HCO3 22.6 L POC VBG HCO3 VBG Total CO2 23.5 L POC VBG Total CO2 VBG O2 Saturation 88.1 H POC Venous O2 Sat VBG Base Excess POC VBG Base Excess VBG Lactic Acid Carboxyhemoglobin 9.6 H Total Hemoglobin 8.1 L Potassium Carbon Dioxide 20 L 21 L Anion Gap BUN 38 H Glucose Hemoglobin A1c 6.1 H POC Venous Lactate Iron Transferrin % Sat Lactate Dehydrogenase 227 H Total Protein 4.6 L Albumin 2.8 L Globulin 1.8 L Beta-Hydroxybutyrate 09/16/21 09/16/21 09/16/21 04:38 04:38 00:05 WBC RBC Hgb 7.3 L Hct MCV MPV Neut % (Auto) Lymph % (Auto) Lymph # (Auto) Absolute Neutrophils PT INR ABG Methemoglobin 0 L VBG pH 7.45 H VBG pCO2 32.9 L 33.9 L POC VBG pCO2 at Temp VBG pO2 92.1 H 88.4 H POC VBG pO2 VBG HCO3 22.6 L 19.8 L POC VBG HCO3 VBG Total CO2 23.6 L 20.8 L POC VBG Total CO2 VBG O2 Saturation 86.7 H 86.3 H POC Venous O2 Sat VBG Base Excess -5 L POC VBG Base Excess VBG Lactic Acid Carboxyhemoglobin 9.4 H 9.9 H Total Hemoglobin 8.4 L 8.0 L Potassium Carbon Dioxide Anion Gap BUN Glucose Hemoglobin A1c POC Venous Lactate Iron Transferrin % Sat Lactate Dehydrogenase Total Protein Albumin Globulin Beta-Hydroxybutyrate 09/16/21 09/16/21 09/15/21 00:05 00:05 21:48 WBC RBC Hgb Hct MCV MPV Neut % (Auto) Lymph % (Auto) Lymph # (Auto) Absolute Neutrophils PT INR ABG Methemoglobin VBG pH VBG pCO2 40.3 L POC VBG pCO2 at Temp VBG pO2 64.9 H POC VBG pO2 VBG HCO3 20.1 L POC VBG HCO3 VBG Total CO2 21.3 L POC VBG Total CO2 VBG O2 Saturation 83.1 H POC Venous O2 Sat VBG Base Excess -6 L POC VBG Base Excess VBG Lactic Acid 2.8 H Carboxyhemoglobin 6.8 H Total Hemoglobin 7.7 L Potassium Carbon Dioxide 21 L Anion Gap BUN Glucose Hemoglobin A1c POC Venous Lactate Iron Transferrin % Sat Lactate Dehydrogenase Total Protein Albumin Globulin Beta-Hydroxybutyrate 09/15/21 09/15/21 09/15/21 18:20 18:01 17:45 WBC RBC Hgb Hct MCV MPV Neut % (Auto) Lymph % (Auto) Lymph # (Auto) Absolute Neutrophils PT 15.5 H INR 1.2 H ABG Methemoglobin VBG pH VBG pCO2 POC VBG pCO2 at Temp VBG pO2 POC VBG pO2 VBG HCO3 POC VBG HCO3 VBG Total CO2 POC VBG Total CO2 VBG O2 Saturation POC Venous O2 Sat VBG Base Excess POC VBG Base Excess VBG Lactic Acid Carboxyhemoglobin Total Hemoglobin Potassium 5.6 H Carbon Dioxide 17 L Anion Gap BUN 55 H Glucose 489 H* Hemoglobin A1c POC Venous Lactate Iron 51 L Transferrin % Sat 17 L Lactate Dehydrogenase 119 L Total Protein 4.8 L Albumin Globulin 1.6 L Beta-Hydroxybutyrate 09/15/21 09/15/21 09/15/21 17:45 15:35 14:40 WBC 12.7 H RBC 1.62 L Hgb 5.2 L* Hct 16.5 L* MCV 101.9 H MPV 13.5 H Neut % (Auto) 86.9 H Lymph % (Auto) 9.6 L Lymph # (Auto) 1.22 L Absolute Neutrophils 11.02 H PT INR ABG Methemoglobin 0.3 L VBG pH VBG pCO2 33.7 L POC VBG pCO2 at Temp VBG pO2 128.1 H POC VBG pO2 VBG HCO3 19.4 L POC VBG HCO3 VBG Total CO2 20.5 L POC VBG Total CO2 VBG O2 Saturation 86.2 H POC Venous O2 Sat VBG Base Excess -5 L POC VBG Base Excess VBG Lactic Acid 6.9 H* Carboxyhemoglobin 11.2 H Total Hemoglobin 5.8 L* Potassium 6.1 H* Carbon Dioxide 15 L Anion Gap 20.0 H BUN 55 H Glucose 587 H* Hemoglobin A1c POC Venous Lactate Iron Transferrin % Sat Lactate Dehydrogenase Total Protein 5.1 L Albumin Globulin 1.9 L Beta-Hydroxybutyrate 0.82 H 09/15/21 14:33 WBC RBC Hgb Hct MCV MPV Neut % (Auto) Lymph % (Auto) Lymph # (Auto) Absolute Neutrophils PT INR ABG Methemoglobin VBG pH VBG pCO2 POC VBG pCO2 at Temp 28.9 L VBG pO2 POC VBG pO2 51 H VBG HCO3 POC VBG HCO3 15.2 L VBG Total CO2 POC VBG Total CO2 16.0 L VBG O2 Saturation POC Venous O2 Sat 84.0 H VBG Base Excess POC VBG Base Excess -11.0 L VBG Lactic Acid Carboxyhemoglobin Total Hemoglobin Potassium Carbon Dioxide Anion Gap BUN Glucose Hemoglobin A1c POC Venous Lactate 9.6 H* Iron Transferrin % Sat Lactate Dehydrogenase Total Protein Albumin Globulin Beta-Hydroxybutyrate Meds: Medications Dextrose (Dextrose 50% 50 Ml Syringe) 0 ml IV UD PRN PRN Reason: Per Sliding Scale Diagnostic Test (Pha) (Accu-Chek 1 Each Strip) 1 each FS Q6 JUAN JOSÉ Last Admin: 09/16/21 05:54 Dose: 1 each Documented by: Diagnostic Test (Pha) (Accu-Chek 1 Each Strip) 1 each FS UD PRN PRN Reason: blood sugar Stop: 09/16/21 16:43 Glucose (Dextrose 31 Gm Oral.Susp) 15 gm PO PRN PRN PRN Reason: Hypoglycemia Pantoprazole Sodium 80 mg/ (Sodium Chloride) 100 mls @ 10 mls/hr IV Q10H JUAN JOSÉ Last Admin: 09/16/21 00:00 Dose: 8 mg/hr, 10 mls/hr Documented by: Sodium Chloride (Sodium Chloride 0.9%) 250 mls @ 20 mls/hr IV .[id number] JUAN JOSÉ; Protocol Last Admin: 09/15/21 23:08 Dose: 20 mls/hr Documented by: Lactated Ringer's (Lactated Ringers) 1,000 mls @ 75 mls/hr IV .[id number] JUAN JOSÉ Last Admin: 09/16/21 01:51 Dose: 75 mls/hr Documented by: Norepinephrine Bitartrate 8 mg (/ Sodium Chloride) 250 mls @ 18.75 mls/hr IV Q12HP PRN; Protocol PRN Reason: Hypotension Sodium Chloride (Sodium Chloride 0.9%) 250 mls @ 20 mls/hr IV .[id number] JUAN JOSÉ Stop: 09/16/21 18:14 Last Admin: 09/16/21 07:41 Dose: 20 mls/hr Documented by: Insulin Human Lispro (Insulin Lispro 1 Unit/0.01 Ml Unit) 0 unit SQ Q6 JUAN JOSÉ; Protocol Last Admin: 09/16/21 05:54 Dose: Not Given Documented by: Ketamine HCl (Ketamine 50 Mg/Ml Ml) 50 mg IV ONCE PRN PRN Reason: Sedation Stop: 09/16/21 16:43 Midazolam HCl (Midazolam 2 Mg/2 Ml Vial) 0 mg IV ONCE JUAN JOSÉ Stop: 09/16/21 16:43 Propofol (Propofol 200 Mg/20 Ml Vial) 0 mg IV UD JUAN JOSÉ Stop: 09/16/21 16:43 Sodium Chloride (0.9 % Sodium Chloride 10 Ml Syringe) 10 ml IV Q8 JUAN JOSÉ Last Admin: 09/16/21 07:40 Dose: 10 ml Documented by: ABG Interpretation ABG results: 09/15/21 09/15/21 09/16/21 17:45 21:48 00:05 ABG Methemoglobin 0.3 L 0.5 0 L VBG pH 7.38 7.32 7.38 VBG pCO2 33.7 L 40.3 L 33.9 L VBG pO2 128.1 H 64.9 H 88.4 H VBG HCO3 19.4 L 20.1 L 19.8 L VBG Total CO2 20.5 L 21.3 L 20.8 L VBG O2 Saturation 86.2 H 83.1 H 86.3 H VBG Base Excess -5 L -6 L -5 L 09/16/21 09/16/21 04:38 07:33 ABG Methemoglobin 0.4 0.3 L VBG pH 7.45 H 7.47 H VBG pCO2 32.9 L 31.8 L VBG pO2 92.1 H 124.7 H VBG HCO3 22.6 L 22.6 L VBG Total CO2 23.6 L 23.5 L VBG O2 Saturation 86.7 H 88.1 H VBG Base Excess -1 -1 A/P Narrative A/P Narrative: Assessment: 75 year old male with a history of hypertension, hyperlipidemia, type 2 diabetes mellitus, anxiety, obesity admitted for hemorrhagic shock likely secondary to an upper gastrointestinal bleed. The patient says he takes aspirin 81 mg daily, no other NSAIDs on a regular basis. Additionally, the patient was markedly hyperglycemic likely secondary to stress induced hyperglycemia. pH was normal therefore patient is unlikely to be in DKA. The patient received 4 units of red blood cells soon after admission, he was given Protonix IV via infusion, hemorrhagic shock resolved. Hyperglycemia resolved, the patient was transitioned off of an insulin infusion to subcutaneous insulin. was consulted, planning for an EGD. #Resolved hemorrhagic shock #Probable upper GI bleed #Resolved hyperkalemia #Type 2 diabetes mellitus #Essential hypertension #Hyperlipidemia #Anxiety disorder #Obesity BMI 35 Plan -Trend hemoglobin transfuse for hemoglobin less than 7 or symptomatic anemia. -Protonix infusion. -Continue IV fluid, monitor volume status. -Levophed as needed to keep MAP greater than 65. -Follow-up H. pylori stool antigen result. -GI consult-planning for EGD. -Correction Humalog SSImedium, discontinued insulin infusion. -Holding home aspirin, amlodipine, lisinopril, metoprolol, metformin, nateglinide. 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 -N.p.o. -DVT prophylaxis: SCDs -CODE STATUS: DNR/DNI Time Spent With Patient Time: Total time spent is greater than 50% in coordination of care (as documented) at patient's floor/unit and/or counseling patient: QUALITY VTE Deep Vein Thrombosis/Pulmonary Embolism Present on Admission: No
[2021-09-16] MEDS: PANTOPRAZOLE 80 MG in 0.9 % SODIUM CHLORIDE 100 ML IV SCH ×3 (12:03→21:42)
[2021-09-16] MEDS ORDERED: EPINEPHrine 1 MG/ML AMPUL ONE (12:03)
[2021-09-16] MEDS: 0.9 % SODIUM CHLORIDE 250 ML IV SCH (12:04)
[2021-09-16] MEDS ORDERED: EPINEPHrine 1 MG/ML AMPUL IV ONE (12:05)
[2021-09-16 23:31] LABS: Hematocrit 21.3 % (40.1-51.0); Hemoglobin 7.1 g/dL (13.7-17.5)
[2021-09-17] MEDS: INSULIN LISPRO 1 UNIT/0.01 ML UNIT SQ SCH ×4 (00:29→17:12)
[2021-09-17] MEDS: 0.9 % SODIUM CHLORIDE 250 ML IV SCH ×2 (00:30→12:53)
[2021-09-17] MEDS: LACTATED RINGERS 1,000 ML IV SCH ×3 (02:37→16:28)
[2021-09-17] MEDS: PANTOPRAZOLE 80 MG in 0.9 % SODIUM CHLORIDE 100 ML IV SCH ×3 (06:08→19:16)
[2021-09-17] MEDS: 0.9 % SODIUM CHLORIDE 10 ML SYRINGE IV SCH ×2 (06:10→12:57)
[2021-09-17 07:11] LABS: Basophils # (Auto) 0.04 K/mcL (0.00-0.30); Basophils % (Auto) 0.4 % (0.0-2.0); Eosinophils # (Auto) 0.08 K/mcL (0.00-0.70); Eosinophils % (Auto) 0.8 % (0.0-7.0); Hematocrit 21.4 % (40.1-51.0); Hemoglobin 6.9 g/dL (13.7-17.5); Lymphocytes # (Auto) 1.82 K/mcL (1.50-4.80); Lymphocytes % (Auto) 18.6 % (15.5-49.0); Mean Corpuscular HGB Conc 32.2 g/dL (31.0-36.0); Mean Platelet Volume 12.7 fL (7.4-10.4); Monocytes # (Auto) 0.91 K/mcL (0.10-0.90); Monocytes % (Auto) 9.3 % (1.0-12.0); Neutrophils % (Auto) 70.9 % (38.0-78.0); Platelet Count 174 K/mcL (140-440); RBC 2.23 M/mcL (4.63-6.08); Red Cell Distribution Width 16.3 % (11.5-14.5); WBC 9.8 K/mcL (4.5-11.0)
[2021-09-17] MEDS ORDERED: 0.9 % SODIUM CHLORIDE 250 ML IV SCH (07:15)
[2021-09-17 07:21] LABS: ALT/SGPT 8 U/L (<40); AST/SGOT 9 U/L (<40); Albumin 2.9 gm/dL (3.2-5.2); Albumin/Globulin Ratio 1.8 (1.0-2.3); Alkaline Phosphatase 50 U/L (39-117); Bilirubin,Direct < 0.2 mg/dL (0-0.3); Bilirubin,Total 0.5 mg/dL (0.1-1.0); Blood Urea Nitrogen 17 mg/dL (8-23); Calcium 8.4 mg/dL (8.6-10.4); Carbon Dioxide 24 mmol/L (22-30); Chloride 105 mmol/L (96-108); Globulin 1.6 gm/dL (2.2-3.7); Glomerular Filtration Rate 87; Glucose 163 mg/dL (70-105); Lactate Dehydrogenase 134 U/L (135-225); Phosphorous 2.5 mg/dL (2.5-4.5); Triglycerides 113 mg/dL (<150); Uric Acid 6.1 mg/dL (2.5-8.0)
[2021-09-17] MEDS: ATORVASTATIN 40 MG TABLET PO SCH (09:32)
[2021-09-17] MEDS ORDERED: IRON SUCROSE COMPLEX 400 MG in 0.9 % SODIUM CHLORIDE 250 ML IV ONE (10:00)
--- NOTE | 2021-09-17 10:42 | Internal Med Progress Note ---
SUBJECTIVE Subjective Patient information: Note initiated : 09/17/21 at 10:39 am Service Date, if different from initiated Date: [] Patient: Christian Botello 75 y/o M admitted on 09/15/21 for hypotension, pale, high BS. Chief Complaint: [] Interval history: Mr. Botello is a 75 year old male with a history of hypertension, hyperlipidemia, type 2 diabetes mellitus, anxiety, obesity who presents to the emergency department for generalized weakness and shortness of breath. The patient says he is also been experiencing epigastric pain for about 5 days. In the ED, the patient was found to have severe anemia and guaiac positive melanotic stool. A dditionally, lactic acid was elevated and blood pressures were low on presentation. The patient was given IV fluids, blood transfusions, Protonix IV. Patient was also hyperglycemic in the emergency department, started on a insulin infusion. Patient does have an anion gap metabolic acidosis likely secondary to lactic acidosis. Venous pH was normal at 7.38. Hospital medicine was consulted for admission. We discussed the plan of care in detail as well as the goals of care and CODE STATUS. All questions answered to the best of my ability. The patient stated that he wishes to be DNR/DNI. 09/16 Patient has received 4 units of red blood cells since admission, vitals much more stable than upon admission, lactic acid downtrending. CT abdomen and pelvis Did not show any evidence of hemorrhage within the abdomen or pelvis. Hyperglycemia resolved, transition to subcutaneous correction insulin SSI. The plan is for EGD today. 09/17. Hemoglobin downtrending at 6.9. Additional 2 units blood transfusion. On PPI. Status post upper endoscopy with DU ulceration.No overnight events including fever chills. Patient feels a lot better. GI on board. Constitutional Vitals: Vital Signs Temp Pulse Resp BP Pulse Ox 98.9 F 76 16 141/67 92 09/17/21 09:31 09/17/21 10:37 09/16/21 16:05 09/17/21 10:31 09/17/21 10:37 Period Temp Pulse Resp BP Sys/Yepez Pulse Ox Last 24 Hr 97.6 F-99.4 F 76-119 16-21 106-147/43-101 86-100 Intake and Output 09/16/21 09/17/21 09/17/21 21:59 05:59 13:59 Intake Total 5524 903 4138 Output Total 1795 840 Balance -153 27 8612 Weight 123.286 kg Pallor noted No anxiety Nonlabored breathing No telemetry events Intake & Output: Intake & Output 09/16/21 09/17/21 09/17/21 21:59 05:59 13:59 Intake Total 6142 038 4218 Output Total 1795 840 Balance -147 63 2456 Weight 123.286 kg Intake: IV 1097 924 350 Sodium Chloride 0.9% 250 ml @ 250 20 mls/hr IV .[id number] JUAN JOSÉ Rx#: [id number] Lactated Ringers 1,000 ml @ 75 1000 924 mls/hr IV .[id number] JUAN JOSÉ Rx#: [id number] Protonix 80 mg In Sodium 97 100 Chloride 0.9% 100 ml @ 8 MG/HR 10 mls/hr IV Q10H JUAN JOSÉ Rx#: [id number] Oral 840 Output: Void Amount 1794 840 Other: Urine Appearance Clear Clear Urine Color Pale Pale Urine Odor Normal OBJ DATA Labs CBC & Chem 7: 09/17/21 05:00 09/17/21 05:00 Labs: Abnormal Lab Results 09/17/21 09/17/21 09/16/21 05:00 05:00 23:04 WBC RBC 2.23 L Hgb 6.9 L* 7.1 L Hct 21.4 L 21.3 L MCV RDW 16.3 H MPV 12.7 H Neut % (Auto) Lymph % (Auto) Lymph # (Auto) Worth # (Auto) 0.91 H Absolute Neutrophils PT INR ABG Methemoglobin VBG pH VBG pCO2 POC VBG pCO2 at Temp VBG pO2 POC VBG pO2 VBG HCO3 POC VBG HCO3 VBG Total CO2 POC VBG Total CO2 VBG O2 Saturation POC Venous O2 Sat VBG Base Excess POC VBG Base Excess VBG Lactic Acid Carboxyhemoglobin Total Hemoglobin Potassium Carbon Dioxide Anion Gap BUN Glucose 163 H Hemoglobin A1c POC Venous Lactate Calcium 8.4 L Iron Transferrin % Sat Lactate Dehydrogenase 134 L Total Protein 4.5 L Albumin 2.9 L Globulin 1.6 L Beta-Hydroxybutyrate 09/16/21 09/16/21 09/16/21 17:00 11:05 07:33 WBC RBC Hgb 7.8 L 7.5 L Hct MCV RDW MPV Neut % (Auto) Lymph % (Auto) Lymph # (Auto) Worth # (Auto) Absolute Neutrophils PT INR ABG Methemoglobin 0.3 L VBG pH 7.47 H VBG pCO2 31.8 L POC VBG pCO2 at Temp VBG pO2 124.7 H POC VBG pO2 VBG HCO3 22.6 L POC VBG HCO3 VBG Total CO2 23.5 L POC VBG Total CO2 VBG O2 Saturation 88.1 H POC Venous O2 Sat VBG Base Excess POC VBG Base Excess VBG Lactic Acid Carboxyhemoglobin 9.6 H Total Hemoglobin 8.1 L Potassium Carbon Dioxide Anion Gap BUN Glucose Hemoglobin A1c POC Venous Lactate Calcium Iron Transferrin % Sat Lactate Dehydrogenase Total Protein Albumin Globulin Beta-Hydroxybutyrate 09/16/21 09/16/21 09/16/21 07:33 04:38 04:38 WBC RBC Hgb 7.3 L Hct MCV RDW MPV Neut % (Auto) Lymph % (Auto) Lymph # (Auto) Worth # (Auto) Absolute Neutrophils PT INR ABG Methemoglobin VBG pH VBG pCO2 POC VBG pCO2 at Temp VBG pO2 POC VBG pO2 VBG HCO3 POC VBG HCO3 VBG Total CO2 POC VBG Total CO2 VBG O2 Saturation POC Venous O2 Sat VBG Base Excess POC VBG Base Excess VBG Lactic Acid Carboxyhemoglobin Total Hemoglobin Potassium Carbon Dioxide 20 L 21 L Anion Gap BUN 38 H Glucose Hemoglobin A1c 6.1 H POC Venous Lactate Calcium Iron Transferrin % Sat Lactate Dehydrogenase 227 H Total Protein 4.6 L Albumin 2.8 L Globulin 1.8 L Beta-Hydroxybutyrate 09/16/21 09/16/21 09/16/21 04:38 00:05 00:05 WBC RBC Hgb Hct MCV RDW MPV Neut % (Auto) Lymph % (Auto) Lymph # (Auto) Worth # (Auto) Absolute Neutrophils PT INR ABG Methemoglobin 0 L VBG pH 7.45 H VBG pCO2 32.9 L 33.9 L POC VBG pCO2 at Temp VBG pO2 92.1 H 88.4 H POC VBG pO2 VBG HCO3 22.6 L 19.8 L POC VBG HCO3 VBG Total CO2 23.6 L 20.8 L POC VBG Total CO2 VBG O2 Saturation 86.7 H 86.3 H POC Venous O2 Sat VBG Base Excess -5 L POC VBG Base Excess VBG Lactic Acid Carboxyhemoglobin 9.4 H 9.9 H Total Hemoglobin 8.4 L 8.0 L Potassium Carbon Dioxide 21 L Anion Gap BUN Glucose Hemoglobin A1c POC Venous Lactate Calcium Iron Transferrin % Sat Lactate Dehydrogenase Total Protein Albumin Globulin Beta-Hydroxybutyrate 09/16/21 09/15/21 09/15/21 00:05 21:48 18:20 WBC RBC Hgb Hct MCV RDW MPV Neut % (Auto) Lymph % (Auto) Lymph # (Auto) Worth # (Auto) Absolute Neutrophils PT 15.5 H INR 1.2 H ABG Methemoglobin VBG pH VBG pCO2 40.3 L POC VBG pCO2 at Temp VBG pO2 64.9 H POC VBG pO2 VBG HCO3 20.1 L POC VBG HCO3 VBG Total CO2 21.3 L POC VBG Total CO2 VBG O2 Saturation 83.1 H POC Venous O2 Sat VBG Base Excess -6 L POC VBG Base Excess VBG Lactic Acid 2.8 H Carboxyhemoglobin 6.8 H Total Hemoglobin 7.7 L Potassium Carbon Dioxide Anion Gap BUN Glucose Hemoglobin A1c POC Venous Lactate Calcium Iron Transferrin % Sat Lactate Dehydrogenase Total Protein Albumin Globulin Beta-Hydroxybutyrate 09/15/21 09/15/21 09/15/21 18:01 17:45 17:45 WBC RBC Hgb Hct MCV RDW MPV Neut % (Auto) Lymph % (Auto) Lymph # (Auto) Worth # (Auto) Absolute Neutrophils PT INR ABG Methemoglobin 0.3 L VBG pH VBG pCO2 33.7 L POC VBG pCO2 at Temp VBG pO2 128.1 H POC VBG pO2 VBG HCO3 19.4 L POC VBG HCO3 VBG Total CO2 20.5 L POC VBG Total CO2 VBG O2 Saturation 86.2 H POC Venous O2 Sat VBG Base Excess -5 L POC VBG Base Excess VBG Lactic Acid Carboxyhemoglobin 11.2 H Total Hemoglobin 5.8 L* Potassium 5.6 H Carbon Dioxide 17 L Anion Gap BUN 55 H Glucose 489 H* Hemoglobin A1c POC Venous Lactate Calcium Iron 51 L Transferrin % Sat 17 L Lactate Dehydrogenase 119 L Total Protein 4.8 L Albumin Globulin 1.6 L Beta-Hydroxybutyrate 09/15/21 09/15/21 09/15/21 15:35 14:40 14:33 WBC 12.7 H RBC 1.62 L Hgb 5.2 L* Hct 16.5 L* MCV 101.9 H RDW MPV 13.5 H Neut % (Auto) 86.9 H Lymph % (Auto) 9.6 L Lymph # (Auto) 1.22 L Worth # (Auto) Absolute Neutrophils 11.02 H PT INR ABG Methemoglobin VBG pH VBG pCO2 POC VBG pCO2 at Temp 28.9 L VBG pO2 POC VBG pO2 51 H VBG HCO3 POC VBG HCO3 15.2 L VBG Total CO2 POC VBG Total CO2 16.0 L VBG O2 Saturation POC Venous O2 Sat 84.0 H VBG Base Excess POC VBG Base Excess -11.0 L VBG Lactic Acid 6.9 H* Carboxyhemoglobin Total Hemoglobin Potassium 6.1 H* Carbon Dioxide 15 L Anion Gap 20.0 H BUN 55 H Glucose 587 H* Hemoglobin A1c POC Venous Lactate 9.6 H* Calcium Iron Transferrin % Sat Lactate Dehydrogenase Total Protein 5.1 L Albumin Globulin 1.9 L Beta-Hydroxybutyrate 0.82 H Meds: Medications Atorvastatin Calcium (Atorvastatin 40 Mg Tablet) 40 mg PO QDAY [facility] Last Admin: 09/17/21 09:32 Dose: 40 mg Documented by: Dextrose (Dextrose 50% 50 Ml Syringe) 0 ml IV UD PRN PRN Reason: Per Sliding Scale Diagnostic Test (Pha) (Accu-Chek 1 Each Strip) 1 each FS Q6 [facility] Last Admin: 09/17/21 05:37 Dose: 1 each Documented by: Glucose (Dextrose 31 Gm Oral.Susp) 15 gm PO PRN PRN PRN Reason: Hypoglycemia Pantoprazole Sodium 80 mg/ (Sodium Chloride) 100 mls @ 10 mls/hr IV Q10H [facility] Last Admin: 09/17/21 07:58 Dose: 8 mg/hr, 10 mls/hr Documented by: Sodium Chloride (Sodium Chloride 0.9%) 250 mls @ 20 mls/hr IV .[id number] [facility]; Protocol Last Admin: 09/17/21 00:30 Dose: Not Given Documented by: Lactated Ringer's (Lactated Ringers) 1,000 mls @ 75 mls/hr IV .[id number] [facility] Last Admin: 09/17/21 04:01 Dose: 75 mls/hr Documented by: Norepinephrine Bitartrate 8 mg (/ Sodium Chloride) 250 mls @ 18.75 mls/hr IV Q12HP PRN; Protocol PRN Reason: Hypotension Sodium Chloride (Sodium Chloride 0.9%) 250 mls @ 20 mls/hr IV .[id number] [facility] Stop: 09/17/21 19:44 Last Admin: 09/17/21 07:40 Dose: 20 mls/hr Documented by: Iron Sucrose 400 mg/ Sodium (Chloride) 270 mls @ 100 mls/hr IV ONCE ONE Stop: 09/17/21 12:41 Insulin Human Lispro (Insulin Lispro 1 Unit/0.01 Ml Unit) 0 unit SQ Q6 JAUN JOSÉ; Protocol Last Admin: 09/17/21 05:37 Dose: 4 units Documented by: Sodium Chloride (0.9 % Sodium Chloride 10 Ml Syringe) 10 ml IV Q8 [facility] Last Admin: 09/17/21 06:10 Dose: 10 ml Documented by: ABG Interpretation ABG results: 09/15/21 09/15/21 09/16/21 17:45 21:48 00:05 ABG Methemoglobin 0.3 L 0.5 0 L VBG pH 7.38 7.32 7.38 VBG pCO2 33.7 L 40.3 L 33.9 L VBG pO2 128.1 H 64.9 H 88.4 H VBG HCO3 19.4 L 20.1 L 19.8 L VBG Total CO2 20.5 L 21.3 L 20.8 L VBG O2 Saturation 86.2 H 83.1 H 86.3 H VBG Base Excess -5 L -6 L -5 L 09/16/21 09/16/21 04:38 07:33 ABG Methemoglobin 0.4 0.3 L VBG pH 7.45 H 7.47 H VBG pCO2 32.9 L 31.8 L VBG pO2 92.1 H 124.7 H VBG HCO3 22.6 L 22.6 L VBG Total CO2 23.6 L 23.5 L VBG O2 Saturation 86.7 H 88.1 H VBG Base Excess -1 -1 A/P Narrative A/P Narrative: Assessment: 75 year old male with a history of hypertension, hyperlipidemia, type 2 diabetes mellitus, anxiety, obesity admitted for hemorrhagic shock likely secondary to an upper gastrointestinal bleed. The patient says he takes a spirin 81 mg daily, no other NSAIDs on a regular basis. Additionally, the patient was markedly hyperglycemic likely secondary to stress induced hyperglycemia. pH was normal therefore patient is unlikely to be in DKA. The patient received 4 units of red blood cells soon after admission, he was given Protonix IV via infusion, hemorrhagic shock resolved. Hyperglycemia resolved, the patient was transitioned off of an insulin infusion to subcutaneous insulin. was consulted, planning for an EGD. * Hemorrhagic shock secondary to blood loss anemia status post 6 unit PRBC transfusion. Hemoglobin 6.9. Status post upper endoscopy. * Acute blood loss anemia status post 6 unit PRBC transfusion * Upper GI bleed secondary to ulcer on endoscopy. On PPI * DM type II CC diet/prandial insulin * Essential hypertension meds on hold until clinically and hemodynamic stable. * HLD on statin * Hyperkalemia resolved Plan * Continue trending hemoglobin and transfuse as indicated * PPI * Continue holding antihypertensives * SCDs * DNR Time Spent With Patient Time: Total time spent is greater than 50% in coordination of care (as documented) at patient's floor/unit and/or counseling patient: QUALITY VTE Deep Vein Thrombosis/Pulmonary Embolism Present on Admission: No
--- NOTE | 2021-09-17 11:01 | EGD Procedure Note ---
EGD Procedure Notes Procedure Information Patient information: Note initiated : 09/17/21 at 10:59 am Service Date: 09/16/21 Patient: Christian Botello 75 y/o M admitted on 09/15/21 for hypotension, pale, high BS. Pre-op diagnosis general: Melena with anemia. Post-Op Diagnosis general: Duodenal ulcer. Procedure: EGD with control of bleed Procedure Narrative: The procedure, alternatives and risks were discussed with the patient and the patient's questions were answered. With endoscopist-administered intravenous sedation, the Olympus video endoscope was introduced into the esophagus. The esophagus, stomach, and duodenum were examined sequentially. There is no esophagitis nor hiatal hernia. A small duodenal ulcer was seen; it was actively bleeding. This was injected with epinephrine and an endo clip was placed. Hemostasis was achieved. The gastric mucosa, antrum, pyloric ring and duodenum were otherwise normal. The scope was withdrawn. Assessment: Duodenal ulcer.
[2021-09-18] MEDS: 0.9 % SODIUM CHLORIDE 10 ML SYRINGE IV SCH ×4 (00:57→22:09)
[2021-09-18] MEDS: INSULIN LISPRO 1 UNIT/0.01 ML UNIT SQ SCH ×5 (00:58→21:43)
[2021-09-18] MEDS: 0.9 % SODIUM CHLORIDE 250 ML IV SCH (00:59)
[2021-09-18] MEDS: LACTATED RINGERS 1,000 ML IV SCH (05:11)
[2021-09-18] MEDS: PANTOPRAZOLE 80 MG in 0.9 % SODIUM CHLORIDE 100 ML IV SCH (05:13)
[2021-09-18 07:27] LABS: ALT/SGPT 9 U/L (<40); AST/SGOT 9 U/L (<40); Albumin/Globulin Ratio 1.9 (1.0-2.3); Alkaline Phosphatase 58 U/L (39-117); Bilirubin,Direct 0.2 mg/dL (<0.3); Bilirubin,Total 0.7 mg/dL (0.1-1.0); Blood Urea Nitrogen 8 mg/dL (8-23); Calcium 8.4 mg/dL (8.6-10.4); Carbon Dioxide 24 mmol/L (22-30); Chloride 106 mmol/L (96-108); Globulin 1.6 gm/dL (2.2-3.7); Glomerular Filtration Rate 92; Glucose 136 mg/dL (70-105); Lactate Dehydrogenase 127 U/L (135-225); Phosphorous 2.7 mg/dL (2.5-4.5); Triglycerides 95 mg/dL (<150); Uric Acid 6.7 mg/dL (2.5-8.0)
[2021-09-18] MEDS: ATORVASTATIN 40 MG TABLET PO SCH (08:17)
[2021-09-18] MEDS: PANTOPRAZOLE 40 MG TABLET PO SCH ×2 (10:39→17:25)
--- NOTE | 2021-09-18 11:00 | Internal Med Progress Note ---
SUBJECTIVE Subjective Patient information: Note initiated : 09/18/21 at 10:56 am Service Date, if different from initiated Date: [] Patient: Christian Botello 75 y/o M admitted on 09/15/21 for hypotension, pale, high BS. Chief Complaint: [] Interval history: Mr. Botello is a 75 year old male with a history of hypertension, hyperlipidemia, type 2 diabetes mellitus, anxiety, obesity who presents to the emergency department for generalized weakness and shortness of breath. The patient says he is also been experiencing epigastric pain for about 5 days. In the ED, the patient was found to have severe anemia and guaiac positive melanotic stool. A dditionally, lactic acid was elevated and blood pressures were low on presentation. The patient was given IV fluids, blood transfusions, Protonix IV. Patient was also hyperglycemic in the emergency department, started on a insulin infusion. Patient does have an anion gap metabolic acidosis likely secondary to lactic acidosis. Venous pH was normal at 7.38. Hospital medicine was consulted for admission. We discussed the plan of care in detail as well as the goals of care and CODE STATUS. All questions answered to the best of my ability. The patient stated that he wishes to be DNR/DNI. 09/16 Patient has received 4 units of red blood cells since admission, vitals much more stable than upon admission, lactic acid downtrending. CT abdomen and pelvis Did not show any evidence of hemorrhage within the abdomen or pelvis. Hyperglycemia resolved, transition to subcutaneous correction insulin SSI. The plan is for EGD today. 09/17. Hemoglobin downtrending at 6.9. Additional 2 units blood transfusion. On PPI. Status post upper endoscopy with DU ulceration.No overnight events including fever chills. Patient feels a lot better. GI on board. 09/18- -Patient doing better. Hemoglobin continues to drift down all day down to 8.1 however this morning 8.4. Receive additional 2 units of PRBC yesterday in addition to iron sucrose 400 mg. Case discussed with GI. Clearly the source duodenal ulcer and would not mandate a lower endoscopy at this time. We will continue to monitor and discussed with GI later today regarding course of action possible discharge. Transition to oral PPI/advance diet. Insulin/BG monitoring AC at bedtime. Constitutional Vitals: Vital Signs Temp Pulse Resp BP Pulse Ox 99.1 F H 77 18 123/58 96 04/28/22 08:01 09/18/21 10:01 09/18/21 00:01 09/18/21 10:01 09/18/21 10:01 Period Temp Pulse Resp BP Sys/Yepez Pulse Ox Last 24 Hr 98.3 F-99.2 F 73-93 18-20 97-141/49-94 83-99 Intake and Output 09/17/21 09/18/21 09/18/21 21:59 05:59 13:59 Intake Total 1784 1054 1387 Output Total 1075 1100 Balance 709 -46 1387 Weight 124.284 kg Alert oriented Nonlabored breathing Nondistended abdomen No telemetry events Intake & Output: Intake & Output 09/17/21 09/18/21 09/18/21 21:59 05:59 13:59 Intake Total 1784 1054 1387 Output Total 1075 1100 Balance 709 -46 1387 Weight 124.284 kg Intake: IV 1304 1054 667 Sodium Chloride 0.9% 250 ml @ 250 20 mls/hr IV .[id number] [facility] Rx#: [id number] Venofer 400 mg In Sodium 270 Chloride 0.9% 250 ml @ 100 mls/ hr IV ONCE ONE Rx#:[id number] Lactated Ringers 1,000 ml @ 75 934 954 361 mls/hr IV .[id number] [facility] Rx#: [id number] Protonix 80 mg In Sodium 100 100 56 Chloride 0.9% 100 ml @ 8 MG/HR 10 mls/hr IV Q10H [facility] Rx#: [id number] Oral 480 720 Output: Void Amount 1075 1100 Other: Meal Dinner Breakfast Percent of Meal Consumed 100% 100% Feeding Ability Independent Urine Appearance Clear Clear Clear Urine Color Pale Pale Bright Yellow Urine Odor Normal Normal OBJ DATA Labs CBC & Chem 7: 09/18/21 06:00 09/18/21 06:00 Labs: Abnormal Lab Results 09/18/21 09/18/21 09/18/21 06:00 06:00 00:56 WBC RBC Hgb 8.4 L 8.1 L Hct MCV RDW MPV Neut % (Auto) Lymph % (Auto) Lymph # (Auto) [place] # (Auto) Absolute Neutrophils PT INR ABG Methemoglobin VBG pH VBG pCO2 POC VBG pCO2 at Temp VBG pO2 POC VBG pO2 VBG HCO3 POC VBG HCO3 VBG Total CO2 POC VBG Total CO2 VBG O2 Saturation POC Venous O2 Sat VBG Base Excess POC VBG Base Excess VBG Lactic Acid Carboxyhemoglobin Total Hemoglobin Potassium Carbon Dioxide Anion Gap 7.0 L BUN Glucose 136 H Hemoglobin A1c POC Venous Lactate Calcium 8.4 L Iron Transferrin % Sat Lactate Dehydrogenase 127 L Total Protein 4.6 L Albumin 3.0 L Globulin 1.6 L Beta-Hydroxybutyrate 09/17/21 09/17/21 09/17/21 18:55 13:33 05:00 WBC RBC 2.23 L Hgb 8.2 L 8.4 L 6.9 L* Hct 21.4 L MCV RDW 16.3 H MPV 12.7 H Neut % (Auto) Lymph % (Auto) Lymph # (Auto) [place] # (Auto) 0.91 H Absolute Neutrophils PT INR ABG Methemoglobin VBG pH VBG pCO2 POC VBG pCO2 at Temp VBG pO2 POC VBG pO2 VBG HCO3 POC VBG HCO3 VBG Total CO2 POC VBG Total CO2 VBG O2 Saturation POC Venous O2 Sat VBG Base Excess POC VBG Base Excess VBG Lactic Acid Carboxyhemoglobin Total Hemoglobin Potassium Carbon Dioxide Anion Gap BUN Glucose Hemoglobin A1c POC Venous Lactate Calcium Iron Transferrin % Sat Lactate Dehydrogenase Total Protein Albumin Globulin Beta-Hydroxybutyrate 09/17/21 09/16/21 09/16/21 05:00 23:04 17:00 WBC RBC Hgb 7.1 L 7.8 L Hct 21.3 L MCV RDW MPV Neut % (Auto) Lymph % (Auto) Lymph # (Auto) [place] # (Auto) Absolute Neutrophils PT INR ABG Methemoglobin VBG pH VBG pCO2 POC VBG pCO2 at Temp VBG pO2 POC VBG pO2 VBG HCO3 POC VBG HCO3 VBG Total CO2 POC VBG Total CO2 VBG O2 Saturation POC Venous O2 Sat VBG Base Excess POC VBG Base Excess VBG Lactic Acid Carboxyhemoglobin Total Hemoglobin Potassium Carbon Dioxide Anion Gap BUN Glucose 163 H Hemoglobin A1c POC Venous Lactate Calcium 8.4 L Iron Transferrin % Sat Lactate Dehydrogenase 134 L Total Protein 4.5 L Albumin 2.9 L Globulin 1.6 L Beta-Hydroxybutyrate 09/16/21 09/16/21 09/16/21 11:05 07:33 07:33 WBC RBC Hgb 7.5 L Hct MCV RDW MPV Neut % (Auto) Lymph % (Auto) Lymph # (Auto) [place] # (Auto) Absolute Neutrophils PT INR ABG Methemoglobin 0.3 L VBG pH 7.47 H VBG pCO2 31.8 L POC VBG pCO2 at Temp VBG pO2 124.7 H POC VBG pO2 VBG HCO3 22.6 L POC VBG HCO3 VBG Total CO2 23.5 L POC VBG Total CO2 VBG O2 Saturation 88.1 H POC Venous O2 Sat VBG Base Excess POC VBG Base Excess VBG Lactic Acid Carboxyhemoglobin 9.6 H Total Hemoglobin 8.1 L Potassium Carbon Dioxide 20 L Anion Gap BUN Glucose Hemoglobin A1c POC Venous Lactate Calcium Iron Transferrin % Sat Lactate Dehydrogenase Total Protein Albumin Globulin Beta-Hydroxybutyrate 09/16/21 09/16/21 09/16/21 04:38 04:38 04:38 WBC RBC Hgb 7.3 L Hct MCV RDW MPV Neut % (Auto) Lymph % (Auto) Lymph # (Auto) [place] # (Auto) Absolute Neutrophils PT INR ABG Methemoglobin VBG pH 7.45 H VBG pCO2 32.9 L POC VBG pCO2 at Temp VBG pO2 92.1 H POC VBG pO2 VBG HCO3 22.6 L POC VBG HCO3 VBG Total CO2 23.6 L POC VBG Total CO2 VBG O2 Saturation 86.7 H POC Venous O2 Sat VBG Base Excess POC VBG Base Excess VBG Lactic Acid Carboxyhemoglobin 9.4 H Total Hemoglobin 8.4 L Potassium Carbon Dioxide 21 L Anion Gap BUN 38 H Glucose Hemoglobin A1c 6.1 H POC Venous Lactate Calcium Iron Transferrin % Sat Lactate Dehydrogenase 227 H Total Protein 4.6 L Albumin 2.8 L Globulin 1.8 L Beta-Hydroxybutyrate 09/16/21 09/16/21 09/16/21 00:05 00:05 00:05 WBC RBC Hgb Hct MCV RDW MPV Neut % (Auto) Lymph % (Auto) Lymph # (Auto) [place] # (Auto) Absolute Neutrophils PT INR ABG Methemoglobin 0 L VBG pH VBG pCO2 33.9 L POC VBG pCO2 at Temp VBG pO2 88.4 H POC VBG pO2 VBG HCO3 19.8 L POC VBG HCO3 VBG Total CO2 20.8 L POC VBG Total CO2 VBG O2 Saturation 86.3 H POC Venous O2 Sat VBG Base Excess -5 L POC VBG Base Excess VBG Lactic Acid 2.8 H Carboxyhemoglobin 9.9 H Total Hemoglobin 8.0 L Potassium Carbon Dioxide 21 L Anion Gap BUN Glucose Hemoglobin A1c POC Venous Lactate Calcium Iron Transferrin % Sat Lactate Dehydrogenase Total Protein Albumin Globulin Beta-Hydroxybutyrate 09/15/21 09/15/21 09/15/21 21:48 18:20 18:01 WBC RBC Hgb Hct MCV RDW MPV Neut % (Auto) Lymph % (Auto) Lymph # (Auto) [place] # (Auto) Absolute Neutrophils PT 15.5 H INR 1.2 H ABG Methemoglobin VBG pH VBG pCO2 40.3 L POC VBG pCO2 at Temp VBG pO2 64.9 H POC VBG pO2 VBG HCO3 20.1 L POC VBG HCO3 VBG Total CO2 21.3 L POC VBG Total CO2 VBG O2 Saturation 83.1 H POC Venous O2 Sat VBG Base Excess -6 L POC VBG Base Excess VBG Lactic Acid Carboxyhemoglobin 6.8 H Total Hemoglobin 7.7 L Potassium 5.6 H Carbon Dioxide 17 L Anion Gap BUN 55 H Glucose 489 H* Hemoglobin A1c POC Venous Lactate Calcium Iron Transferrin % Sat Lactate Dehydrogenase 119 L Total Protein 4.8 L Albumin Globulin 1.6 L Beta-Hydroxybutyrate 09/15/21 09/15/21 09/15/21 17:45 17:45 15:35 WBC RBC Hgb Hct MCV RDW MPV Neut % (Auto) Lymph % (Auto) Lymph # (Auto) [place] # (Auto) Absolute Neutrophils PT INR ABG Methemoglobin 0.3 L VBG pH VBG pCO2 33.7 L POC VBG pCO2 at Temp VBG pO2 128.1 H POC VBG pO2 VBG HCO3 19.4 L POC VBG HCO3 VBG Total CO2 20.5 L POC VBG Total CO2 VBG O2 Saturation 86.2 H POC Venous O2 Sat VBG Base Excess -5 L POC VBG Base Excess VBG Lactic Acid 6.9 H* Carboxyhemoglobin 11.2 H Total Hemoglobin 5.8 L* Potassium 6.1 H* Carbon Dioxide 15 L Anion Gap 20.0 H BUN 55 H Glucose 587 H* Hemoglobin A1c POC Venous Lactate Calcium Iron 51 L Transferrin % Sat 17 L Lactate Dehydrogenase Total Protein 5.1 L Albumin Globulin 1.9 L Beta-Hydroxybutyrate 0.82 H 09/15/21 09/15/21 14:40 14:33 WBC 12.7 H RBC 1.62 L Hgb 5.2 L* Hct 16.5 L* MCV 101.9 H RDW MPV 13.5 H Neut % (Auto) 86.9 H Lymph % (Auto) 9.6 L Lymph # (Auto) 1.22 L [place] # (Auto) Absolute Neutrophils 11.02 H PT INR ABG Methemoglobin VBG pH VBG pCO2 POC VBG pCO2 at Temp 28.9 L VBG pO2 POC VBG pO2 51 H VBG HCO3 POC VBG HCO3 15.2 L VBG Total CO2 POC VBG Total CO2 16.0 L VBG O2 Saturation POC Venous O2 Sat 84.0 H VBG Base Excess POC VBG Base Excess -11.0 L VBG Lactic Acid Carboxyhemoglobin Total Hemoglobin Potassium Carbon Dioxide Anion Gap BUN Glucose Hemoglobin A1c POC Venous Lactate 9.6 H* Calcium Iron Transferrin % Sat Lactate Dehydrogenase Total Protein Albumin Globulin Beta-Hydroxybutyrate Meds: Medications Atorvastatin Calcium (Atorvastatin 40 Mg Tablet) 40 mg PO QDAY [facility] Last Admin: 09/18/21 08:17 Dose: 40 mg Documented by: Dextrose (Dextrose 50% 50 Ml Syringe) 0 ml IV UD PRN PRN Reason: Per Sliding Scale Diagnostic Test (Pha) (Accu-Chek 1 Each Strip) 1 each FS [facility] Glucose (Dextrose 31 Gm Oral.Susp) 15 gm PO PRN PRN PRN Reason: Hypoglycemia Insulin Human Lispro (Insulin Lispro 1 Unit/0.01 Ml Unit) 0 unit SQ [facility]; Protocol Pantoprazole Sodium (Pantoprazole 40 Mg Tablet) 40 mg PO BIDAC [facility] Last Admin: 09/18/21 10:39 Dose: 40 mg Documented by: Sodium Chloride (0.9 % Sodium Chloride 10 Ml Syringe) 10 ml IV Q8 [facility] Last Admin: 09/18/21 06:11 Dose: 10 ml Documented by: ABG Interpretation ABG results: 09/15/21 09/15/21 09/16/21 17:45 21:48 00:05 ABG Methemoglobin 0.3 L 0.5 0 L VBG pH 7.38 7.32 7.38 VBG pCO2 33.7 L 40.3 L 33.9 L VBG pO2 128.1 H 64.9 H 88.4 H VBG HCO3 19.4 L 20.1 L 19.8 L VBG Total CO2 20.5 L 21.3 L 20.8 L VBG O2 Saturation 86.2 H 83.1 H 86.3 H VBG Base Excess -5 L -6 L -5 L 09/16/21 09/16/21 04:38 07:33 ABG Methemoglobin 0.4 0.3 L VBG pH 7.45 H 7.47 H VBG pCO2 32.9 L 31.8 L VBG pO2 92.1 H 124.7 H VBG HCO3 22.6 L 22.6 L VBG Total CO2 23.6 L 23.5 L VBG O2 Saturation 86.7 H 88.1 H VBG Base Excess -1 -1 A/P Narrative A/P Narrative: Assessment: 75 year old male with a history of hypertension, hyperlipidemia, type 2 diabetes mellitus, anxiety, obesity admitted for hemorrhagic shock likely secondary to an upper gastrointestinal bleed. The patient says he takes aspirin 81 mg daily, no other NSAIDs on a regular basis. Additionally, the patient was markedly hyperglycemic likely secondary to stress induced hyperglycemia. pH was normal therefore patient is unlikely to be in DKA. The patient received 4 units of red blood cells soon after admission, he was given Protonix IV via infusion, hemorrhagic shock resolved. Hyperglycemia resolved, the patient was transitioned off of an insulin infusion to subcutaneous insulin. was consulted, planning for an EGD. * Hemorrhagic shock secondary to blood loss anemia status post 6 unit PRBC transfusion. Stable hemodynamics * Acute blood loss anemia status post 6 unit PRBC transfusion/IV iron * Upper GI bleed secondary to duodenal ulcer on endoscopy. Twice daily PPI * DM type II CC diet/prandial insulin * Essential hypertension meds on hold until clinically and hemodynamic stable. * HLD on statin Plan * Continue trending hemoglobin * Oral PPI * Advance diet as tolerated * Continue holding antihypertensives * SCDs * DNR Time Spent With Patient Time: Total time spent is greater than 50% in coordination of care (as documented) at patient's floor/unit and/or counseling patient: QUALITY VTE Deep Vein Thrombosis/Pulmonary Embolism Present on Admission: No
[2021-09-18] MEDS: busPIRone 15 MG TABLET PO SCH (21:37)
[2021-09-19] MEDS: 0.9 % SODIUM CHLORIDE 10 ML SYRINGE IV SCH (05:08)
[2021-09-19] MEDS: INSULIN LISPRO 1 UNIT/0.01 ML UNIT SQ SCH ×2 (08:42→12:00)
[2021-09-19] MEDS: ATORVASTATIN 40 MG TABLET PO SCH (08:42)
[2021-09-19] MEDS: busPIRone 15 MG TABLET PO SCH (08:43)
[2021-09-19] MEDS: PANTOPRAZOLE 40 MG TABLET PO SCH (08:43)
[2021-09-19] MEDS ORDERED: EZETIMIBE 10 MG TABLET PO SCH (09:00)
[2021-09-19] MEDS ORDERED: amLODIPine 5 MG TABLET PO SCH (09:00)
--- NOTE | 2021-09-19 10:15 | Discharge Summary ---
Discharge Provider Provider Patient information: Note initiated : 09/19/21 at 10:12 am Service Date, if different from initiated Date: [] Patient: Christian Botello 75 y/o M admitted on 09/15/21 for hypotension, pale, high BS. Chief Complaint: [] Date of admission: 09/15/21 20:13 Discharge date: 09/19/21 Primary care physician: Riri Edwards Consults: 09/15/21 16:49 Consult to Physician [CONS] Stat Comment: Consulting Provider: Alli Martins Reason For Exam: Physician to Consult Consult to Physician [CONS] Stat Comment: Consulting Provider: Priyanka Paredes Reason For Exam: Physician to Consult 09/15/21 20:55 Consult to Physician [CONS] Stat Comment: Consulting Provider: Sarwat Guan Reason For Exam: Physician to Consult Discharge Meds Discharge Medications Home Medications atorvastatin 40 mg tablet 40 mg PO QDAY 04/16/21 [History Confirmed 09/16/21 Last Taken Unknown] ezetimibe 10 mg tablet 10 mg PO QDAY 04/16/21 [History Confirmed 09/16/21 Last Taken Unknown] lisinopril 20 mg tablet 20 mg PO QDAY 04/16/21 [History Confirmed 09/16/21 Last Taken Unknown] metformin 500 mg tablet 1,000 mg PO BID tab 04/16/21 [History Confirmed 09/16/21 Last Taken Unknown] metoprolol succinate 100 mg tablet,extended release 24 hr 100 mg PO QDAY 04/16/21 [History Confirmed 09/16/21 Last Taken Unknown] zolpidem 10 mg tablet 10 mg PO HSP PRN tab 04/16/21 [History Confirmed 09/16/21 Last Taken Unknown] amlodipine 5 mg tablet 5 mg PO QDAY 04/30/21 [History Confirmed 09/16/21 Last Taken Unknown] buspirone 15 mg tablet 15 mg PO BID tab 04/30/21 [History Confirmed 09/16/21 Last Taken Unknown] nateglinide 60 mg tablet 60 mg PO BID tab 04/30/21 [History Confirmed 09/16/21 Last Taken Unknown] pantoprazole 40 mg tablet,delayed release 40 mg PO BIDAC #60 tab 09/19/21 [Rx Last Taken Unknown] COURSE Hospital Course Hospital course: Discharge diagnosis * Hemorrhagic shock secondary to blood loss anemia status post 6 unit PRBC transfusion. Clinically resolved. Hemoglobin uptrending now at 8.9. * Acute blood loss anemia status post 6 unit PRBC transfusion/IV iron * Upper GI bleed secondary to duodenal ulcer on endoscopy. Continue twice daily PPI * DM type II CC diet/prandial insulin * Essential hypertension -currently stable. Gradually restart medications over the next 72 hours on discharge based on blood pressures * HLD on statin Brief hospital course Mr. Botello is a 75 year old male with a history of hypertension, hyperlipidemia, type 2 diabetes mellitus, anxiety, obesity who presents to the emergency department for generalized weakness and shortness of breath. The patient says he is also been experiencing epigastric pain for about 5 days. In the ED, the patient was found to have severe anemia and guaiac positive melanotic stool. Ad ditionally, lactic acid was elevated and blood pressures were low on presentation. The patient was given IV fluids, blood transfusions, Protonix IV. Patient was also hyperglycemic in the emergency department, started on a insulin infusion. Patient does have an anion gap metabolic acidosis likely secondary to lactic acidosis. Venous pH was normal at 7.38. Hospital medicine was consulted for admission. We discussed the plan of care in detail as well as the goals of care and CODE STATUS. All questions answered to the best of my ability. The patient stated that he wishes to be DNR/DNI. 09/16 Patient has received 4 units of red blood cells since admission, vitals much more stable than upon admission, lactic acid downtrending. CT abdomen and pelvis Did not show any evidence of hemorrhage within the abdomen or pelvis. Hyperglycemia resolved, transition to subcutaneous correction insulin SSI. The plan is for EGD today. 09/17. Hemoglobin downtrending at 6.9. Additional 2 units blood transfusion. On PPI. Status post upper endoscopy with DU ulceration.No overnight events including fever chills. Patient feels a lot better. GI on board. 09/18- -Patient doing better. Hemoglobin continues to drift down all day down to 8.1 however this morning 8.4. Receive additional 2 units of PRBC yesterday in addition to iron sucrose 400 mg. Case discussed with GI. Clearly the source duodenal ulcer and would not mandate a lower endoscopy at this time. We will continue to monitor and discussed with GI later today regarding course of action possible discharge. Transition to oral PPI/advance diet. Insulin/BG monitoring AC at bedtime. 09/19-patient doing well. No overnight events. Hemoglobin stabilized at 8.9. Will undergo repeat surveillance upper endoscopy and will discharge post upper endoscopy on oral PPI. Stable hemodynamics. Discharge diagnosis: . Time Spent with Patient Time attestation: Total time spent providing and/or coordinating discharge services: EXAM Constitutional Vitals: Temp Pulse Resp BP Pulse Ox 98.6 F 85 16 128/70 93 09/19/21 07:38 09/19/21 07:38 09/19/21 07:38 09/19/21 07:38 09/19/21 07:38 Discharge Data Data Completed and Pending Labs on day of discharge: Labs from last 24 hours 09/18/21 09/18/21 19:30 11:07 Hgb 8.9 L 8.1 L Preliminary micro results at discharge 09/15/21 15:02 Blood Culture - Preliminary Blood 09/15/21 14:50 Blood Culture - Preliminary Blood Discharge Plan Patient/Caregiver Discharge Instructions Activity: increase activity as tolerated Diet: Regular Diet Instructions: Pantoprazole (By mouth), Peptic Ulcer (DC), Acute Posthemorrhagic Anemia (DC), Upper Endoscopy (DC) Activity Restrictions/Additional Instructions: Increase activity as tolerated. May resume regular diet as tolerated. Call your physician for sustained fever greater than 100.5, bleeding, increase in weakness/dizziness, or any questions/concerns. This discharge packet is provided to you to help keep you informed about your care. We want to ensure you get everything you need when you go home. You will also be receiving a call from us in a few days to follow up with you and see how you are doing since your discharge. This gives us a chance to listen to any concerns you maybe experiencing since you were discharged or any additional needs you may have, as well as providing us feedback on your care experience. We strive to always provide excellent care and thank you for your feedback and for choosing [facility]. Prescriptions: New pantoprazole 40 mg Tablet,Delayed Release (Dr/Ec) 40 mg PO BIDAC Qty: 60 0RF Continued ezetimibe 10 mg tablet 10 mg PO QDAY 0RF zolpidem 10 mg tablet 10 mg PO HSP PRN (Reason: Insomnia) 0RF metoprolol succinate 100 mg tablet extended release 24 hr 100 mg PO QDAY 0RF metformin 500 mg tablet 1,000 mg PO BID 0RF lisinopril 20 mg tablet 20 mg PO QDAY 0RF atorvastatin 40 mg tablet 40 mg PO QDAY 0RF buspirone 15 mg tablet 15 mg PO BID 0RF Label Comments: Dr Edwards manages amlodipine 5 mg tablet 5 mg PO QDAY 0RF nateglinide 60 mg tablet 60 mg PO BID 0RF Rx Instructions: give before meal(s) Follow Up Plan Follow up with: Riri Edwards MD [Primary Care Provider] - 10/01/21 10:30 am Patient Disposition: Home, Self-Care Prognosis: Critical Rehab Potential: Fair I certify that the patient requires SNF services: No Overall status at discharge: patient is progressing back to baseline Discharge Orders: Discharge Order (Routine); Ordered 09/19/21 Ordered By: Zachary Sarabia Discharge Comment: home with daughter for support QUALITY VTE Deep Vein Thrombosis/Pulmonary Embolism Present on Admission: No
[2021-09-19] MEDS ORDERED: KETAMINE 50 MG/ML ML IV PRN (12:05)
[2021-09-19] MEDS ORDERED: MIDAZOLAM 2 MG/2 ML VIAL ONE (12:12)
[2021-09-19] MEDS ORDERED: PROPOFOL 200 MG/20 ML VIAL IV ONE (12:12)
[2021-09-19] MEDS ORDERED: MIDAZOLAM 2 MG/2 ML VIAL IV SCH (12:15)
[2021-09-19] MEDS ORDERED: PROPOFOL 200 MG/20 ML VIAL IV SCH (12:15)
--- NOTE | 2021-09-22 08:52 | EGD Procedure Note ---
EGD Procedure Notes Procedure Information Patient information: Note initiated : 09/22/21 at 8:51 am Service Date: 09/19/21 Patient: Christian Botello 75 y/o M admitted on 09/15/21 for hypotension, pale, high BS. Pre-op diagnosis general: GI bleed. Post-Op Diagnosis general: Duodenal ulcer. Procedure: egd Procedure Narrative: The procedure, alternatives and risks were discussed with the patient and the patient's questions were answered. With endoscopist-administered intravenous sedation, the Olympus video endoscope was introduced into the esophagus. The esophagus, stomach, and duodenum were examined sequentially. There is no esophagitis nor hiatal hernia. A healing post bulbar duodenal ulcer was seen. Clip was in place. There was no stigmata of rebleeding. The gastric mucosa, antrum, pyloric ring and duodenum were otherwise normal. The scope was withdrawn. Assessment: Duodenal ulcer.
== END 2021-09-19 13:00 | disposition home or self-care (01) | DRG 871 ==
LOC: ED 14:10 → ICU 20:13 → MEDSUR 09-18 14:49
PROVIDERS: ADMIT Internal Medicine; ATTEND Internal Medicine